=== PATIENT | male | born 1950 | race African-American/Black ===

== ENCOUNTER 2017-03-21 11:28 | Emergency (ER) | payer MEDICARE, MEDICAID ==
[~2017-03-21] VITALS: Ht 188 cm; Wt 105.6 kg
[~2017-03-21 11:28] MED LIST: ALBU8.5H8 IH; FLUT16SP26 BOTHNARES; IBUP-1984 PO; INSU100V36 SQ; LANTUS SQ; NORCO10T PO
[2017-03-21] MEDS ORDERED: normal saline 1000ML IV soln IVB ONE ×2 (12:05→13:35)
[2017-03-21 12:37] LABS: BASOPHILS % (AUTO) 0.5 % (0-1); EOSINOPHILS # (AUTO) 0.3 X10'3 (0-0.9); EOSINOPHILS % (AUTO) 5.1 % (0-6); HEMATOCRIT 44.1 % (42.0-52.0); HEMOGLOBIN 14.3 g/dl (14.0-17.9); LYMPHOCYTES # (AUTO) 1.1 X10'3 (1.1-4.8); LYMPHOCYTES % (AUTO) 22.9 % (21-51); MEAN CORPUSCULAR HEMOGLOBIN 27.7 PG (27.0-31.0); MEAN CORPUSCULAR HGB CONC 32.5 % (33.0-36.5); MEAN CORPUSCULAR VOLUME 85.3 FL (78-98); MEAN PLATELET VOLUME 9.5 FL (7.4-10.4); MONOCYTES # (AUTO) 0.4 X10'3 (0-0.9); MONOCYTES % (AUTO) 7.7 % (2-12); NEUTROPHILS # (AUTO) 3.2 X10'3 (1.8-7.7); NEUTROPHILS % (AUTO) 63.8 % (42-75); PLATELET COUNT 151 X10'3 (140-440); RED BLOOD COUNT 5.17 X10'6 (4.70-6.10); RED CELL DISTRIBUTION WIDTH 14.6 % (11.5-14.5)
[2017-03-21 12:45] LABS: PROTHROMBIN TIME 10.6 SECONDS (9.0-12.0)
[2017-03-21 12:53] LABS: ALANINE AMINOTRANSFERASE 32 U/L (12-78); ALBUMIN 3.5 G/DL (3.4-5.0); ALBUMIN/GLOBULIN RATIO 1.1 (1.1-1.5); ALKALINE PHOSPHATASE 69 IU/L (46-116); ANION GAP 12 (8-16); ASPARTATE AMINO TRANSFERASE 7 U/L (10-37); BILIRUBIN,TOTAL 0.6 MG/DL (0.1-1.0); BLOOD UREA NITROGEN 11 MG/DL (7-18); BUN/CREATININE RATIO 12.2 (5.4-32.0); CHLORIDE 103 MMOL/L (99-107); GLUCOSE 354 MG/DL (70-104); POTASSIUM 4.1 MMOL/L (3.5-5.1); SODIUM 139 MMOL/L (135-145); TOTAL CARBON DIOXIDE 24.5 MMOL/L (24-32); TOTAL PROTEIN 6.8 G/DL (6.4-8.2); eGFR > 90 ML/MIN
[2017-03-21] MEDS ORDERED: METF1000 PO (14:55)
[2017-03-21 14:57] VITALS: BP 112/45
== END 2017-03-21 14:59 | disposition home or self-care (01) ==
LOC: ER 11:29
DX: R42 Dizziness and giddiness (principal); E11.65 Type 2 diabetes mellitus with hyperglycemia; I10 Essential (primary) hypertension; M19.90 Unspecified osteoarthritis, unspecified site; F17.200 Nicotine dependence, unspecified, uncomplicated; F12.10 Cannabis abuse, uncomplicated; Z79.899 Other long term (current) drug therapy; Z79.4 Long term (current) use of insulin
CPT/HCPCS: 36415; 71045; 80053; 82948; 85025; 85610; 93005; 96360; 96361; 99285; J7030

== ENCOUNTER 2017-12-03 09:18 | Emergency (ER) | payer MEDICARE, MEDICAID ==
[~2017-12-03] VITALS: Ht 188 cm; Wt 80.0 kg
[2017-12-03 09:23] VITALS: BP 110/66
[2017-12-03] MEDS ORDERED: DIPH25CA83 PO (10:04)
[2017-12-03] MEDS ORDERED: CEPH-572 PO (10:04)
[2017-12-03] MEDS ORDERED: diphenhydrAMINE 25mg capsule PO ONE (10:05)
== END 2017-12-03 10:15 | disposition home or self-care (01) ==
LOC: ER 09:19
DX: L03.011 Cellulitis of right finger (principal); I10 Essential (primary) hypertension; E11.9 Type 2 diabetes mellitus without complications; M19.90 Unspecified osteoarthritis, unspecified site; F12.90 Cannabis use, unspecified, uncomplicated; Z79.82 Long term (current) use of aspirin
CPT/HCPCS: 99284; Q0163

== ENCOUNTER 2018-12-02 18:48 | Emergency (ER) | payer MEDICARE, MEDICAID ==
[~2018-12-02] VITALS: Ht 182.9 cm; Wt 90.0 kg
[~2018-12-02 18:48] MED LIST changes: +DIPH25CA83 PO
[2018-12-02 19:41] LABS: BASOPHILS # (AUTO) 0.1 X10'3 (0-0.2); BASOPHILS % (AUTO) 1.1 % (0-1); EOSINOPHILS # (AUTO) 0.2 X10'3 (0-0.9); HEMATOCRIT 42.6 % (42.0-52.0); HEMOGLOBIN 13.9 g/dl (14.0-17.9); LYMPHOCYTES # (AUTO) 1.4 X10'3 (1.1-4.8); LYMPHOCYTES % (AUTO) 27.5 % (21-51); MEAN CORPUSCULAR HEMOGLOBIN 27.7 PG (27.0-31.0); MEAN CORPUSCULAR HGB CONC 32.5 g/dL (33.0-36.5); MEAN CORPUSCULAR VOLUME 85.3 FL (78-98); MONOCYTES # (AUTO) 0.5 X10'3 (0-0.9); MONOCYTES % (AUTO) 8.9 % (2-12); NEUTROPHILS % (AUTO) 58.5 % (42-75); PLATELET COUNT 211 X10'3 (140-440); RED CELL DISTRIBUTION WIDTH 14.8 % (11.5-14.5); WHITE BLOOD COUNT 5.1 X10'3 (4.5-11.0)
[2018-12-02 19:48] LABS: ALANINE AMINOTRANSFERASE 25 U/L (12-78); ALBUMIN 3.8 G/DL (3.4-5.0); ALKALINE PHOSPHATASE 73 IU/L (46-116); ANION GAP 9 (8-16); ASPARTATE AMINO TRANSFERASE 16 U/L (10-37); BILIRUBIN,TOTAL 0.7 MG/DL (0.1-1.0); BLOOD UREA NITROGEN 16 MG/DL (7-18); BUN/CREATININE RATIO 16.7 (5.4-32.0); CALCIUM 9.1 MG/DL (8.5-10.1); CHLORIDE 108 MMOL/L (99-107); CREATININE 0.96 MG/DL (0.60-1.10); GLUCOSE 190 MG/DL (70-104); POTASSIUM 4.3 MMOL/L (3.5-5.1); SODIUM 143 MMOL/L (135-145); TOTAL CARBON DIOXIDE 25.7 MMOL/L (24-32); TOTAL PROTEIN 7.5 G/DL (6.4-8.2); eGFR > 90 ML/MIN
[2018-12-02 20:01] LABS: PARTIAL THROMBOPLASTIN TIME 27 SECONDS (22-32)
[2018-12-02 21:29] VITALS: BP 94/66
--- NOTE | 2018-12-02 21:34 | NUR ---
Orthostatic vitals completed with no complaints of dizziness or feeling lightheaded with each position change.
[2018-12-02] MEDS ORDERED: ketorolac tromethamine 15mg/ml inj. IV ONE (21:55)
[2018-12-02] MEDS ORDERED: normal saline 1000ML IV soln IVB ONE (21:55)
== END 2018-12-02 23:04 | disposition home or self-care (01) ==
LOC: ER 18:49
DX: R42 Dizziness and giddiness (principal); M79.89 Other specified soft tissue disorders; I10 Essential (primary) hypertension; E11.9 Type 2 diabetes mellitus without complications; M19.90 Unspecified osteoarthritis, unspecified site; F12.90 Cannabis use, unspecified, uncomplicated; Z79.4 Long term (current) use of insulin; Z79.899 Other long term (current) drug therapy
CPT/HCPCS: 36415; 71046; 80053; 82948; 84484; 85025; 85610; 85730; 93005; 96374; 99284; J1885; J7030

== ENCOUNTER 2018-12-05 17:53 | Emergency (ER) | payer MEDICARE, MEDICAID ==
[~2018-12-05] VITALS: Ht 188 cm; Wt 103.8 kg
[2018-12-05] MEDS ORDERED: ketorolac tromethamine 15mg/ml inj. IM ONE (19:05)
[2018-12-05 19:37] LABS: BASOPHILS % (AUTO) 0.8 % (0-1); EOSINOPHILS # (AUTO) 0.2 X10'3 (0-0.9); EOSINOPHILS % (AUTO) 3.5 % (0-6); HEMATOCRIT 42.4 % (42.0-52.0); LYMPHOCYTES # (AUTO) 1.3 X10'3 (1.1-4.8); LYMPHOCYTES % (AUTO) 20.7 % (21-51); MEAN PLATELET VOLUME 8.8 FL (7.4-10.4); MONOCYTES # (AUTO) 0.7 X10'3 (0-0.9); MONOCYTES % (AUTO) 10.7 % (2-12); NEUTROPHILS # (AUTO) 3.9 X10'3 (1.8-7.7); NEUTROPHILS % (AUTO) 64.3 % (42-75); PLATELET COUNT 198 X10'3 (140-440); RED BLOOD COUNT 4.99 X10'6 (4.70-6.10); RED CELL DISTRIBUTION WIDTH 14.7 % (11.5-14.5); WHITE BLOOD COUNT 6.1 X10'3 (4.5-11.0)
[2018-12-05 19:53] LABS: ALANINE AMINOTRANSFERASE 44 U/L (12-78); ALBUMIN 3.9 G/DL (3.4-5.0); ALKALINE PHOSPHATASE 83 IU/L (46-116); ANION GAP 9 (8-16); ASPARTATE AMINO TRANSFERASE 53 U/L (10-37); BILIRUBIN,TOTAL 0.6 MG/DL (0.1-1.0); BLOOD UREA NITROGEN 17 MG/DL (7-18); BUN/CREATININE RATIO 17.5 (5.4-32.0); CHLORIDE 105 MMOL/L (99-107); CREATININE 0.97 MG/DL (0.60-1.10); ETHANOL < 0.010 GM/DL (0.0-0.010); GLUCOSE 197 MG/DL (70-104); POTASSIUM 4.1 MMOL/L (3.5-5.1); SODIUM 141 MMOL/L (135-145); TOTAL CARBON DIOXIDE 27.4 MMOL/L (24-32); TOTAL PROTEIN 7.8 G/DL (6.4-8.2); eGFR > 90 ML/MIN
[2018-12-05 21:19] VITALS: BP 136/88
== END 2018-12-05 21:17 | disposition home or self-care (01) ==
LOC: ER 17:54
DX: S39.012A Strain of muscle, fascia and tendon of lower back, initial encounter (principal); H55.00 Unspecified nystagmus; R20.0 Anesthesia of skin; H53.8 Other visual disturbances; W18.39XA Other fall on same level, initial encounter; Y93.89 Activity, other specified; Y92.89 Other specified places as the place of occurrence of the external cause; Y99.8 Other external cause status
CPT/HCPCS: 36415; 70450; 72131; 80053; 80320; 85025; 96372; 99284; J1885

== ENCOUNTER 2019-03-12 14:29 | Inpatient (IN) | payer MEDICARE, MEDICAID ==
[~2019-03-12] VITALS: Ht 182.9 cm; Wt 101.5 kg
[2019-03-12] VITALS (9 sets, daily range): BP systolic 108–143; BP diastolic 45–76
--- NOTE | 2019-03-12 14:35 | NUR ---
1435 Dr Fay at bedside, STEMI alert called, pt is resting quietly on gurney, chest pain is 1/10, no SOB, +n/v prior to arrival in ER, Dr Fay gave verbal order 1liter NS bolus 1450 Dr Scott at bedside, 1455 Dr Scott gave verbal order for 2nd 1liter NS bolus, BP 81/26, 2nd EKG done, optometric technician stat 1505 2nd liter NS infusing w/o, [facility], Dr Scott at bedside to discuss plan of care, pt to be admitted to CCU, will not go to clinical laboratory medical director at this time,
[2019-03-12] MEDS ORDERED: heparin 10,000 units/1 ML INJ IV ONE ×2 (14:40→15:50)
[2019-03-12] MEDS ORDERED: aspirin 81mg tab.chew PO ONE (14:40)
[2019-03-12] MEDS ORDERED: heparin 10,000 units/1 ML INJ IV PRN ×2 (14:40→15:50)
[2019-03-12 14:49] LABS: BASOPHILS # (AUTO) 0.1 X10'3 (0-0.2); BASOPHILS % (AUTO) 0.7 % (0-1); EOSINOPHILS # (AUTO) 0.2 X10'3 (0-0.9); HEMATOCRIT 40.8 % (42.0-52.0); HEMOGLOBIN 13.5 g/dl (14.0-17.9); LYMPHOCYTES # (AUTO) 1.5 X10'3 (1.1-4.8); LYMPHOCYTES % (AUTO) 20.2 % (21-51); MEAN CORPUSCULAR HEMOGLOBIN 27.3 PG (27.0-31.0); MEAN CORPUSCULAR VOLUME 82.7 FL (78-98); MEAN PLATELET VOLUME 9.3 FL (7.4-10.4); MONOCYTES # (AUTO) 0.5 X10'3 (0-0.9); MONOCYTES % (AUTO) 6.3 % (2-12); NEUTROPHILS # (AUTO) 5.3 X10'3 (1.8-7.7); NEUTROPHILS % (AUTO) 69.8 % (42-75); PLATELET COUNT 176 X10'3 (140-440); RED BLOOD COUNT 4.94 X10'6 (4.70-6.10); RED CELL DISTRIBUTION WIDTH 14.8 % (11.5-14.5); WHITE BLOOD COUNT 7.6 X10'3 (4.5-11.0)
[2019-03-12] MEDS: heparin 25,000 UNIT/250ml bag 250 ML IV SCH (14:57)
[2019-03-12 15:00] LABS: PARTIAL THROMBOPLASTIN TIME 24 SECONDS (22-32)
[2019-03-12 15:03] LABS: ALANINE AMINOTRANSFERASE 18 U/L (12-78); ALBUMIN 3.4 G/DL (3.4-5.0); ALKALINE PHOSPHATASE 75 IU/L (46-116); ANION GAP 7 (8-16); ASPARTATE AMINO TRANSFERASE 12 U/L (10-37); BILIRUBIN,TOTAL 0.4 MG/DL (0.1-1.0); BLOOD UREA NITROGEN 13 MG/DL (7-18); BUN/CREATININE RATIO 12.9 (5.4-32.0); CALCIUM 8.7 MG/DL (8.5-10.1); CHLORIDE 107 MMOL/L (99-107); CREATININE 1.01 MG/DL (0.60-1.10); GLUCOSE 311 MG/DL (70-104); POTASSIUM 4.2 MMOL/L (3.5-5.1); SODIUM 144 MMOL/L (135-145); TOTAL CARBON DIOXIDE 30.4 MMOL/L (24-32); TOTAL PROTEIN 6.8 G/DL (6.4-8.2); eGFR 88 ML/MIN
[2019-03-12] MEDS ORDERED: insulin regular, human 10 units/0.1 ml syringe IV ONE (15:05)
[2019-03-12 15:10] LABS: MAGNESIUM 1.8 MG/DL (1.5-2.4)
--- NOTE | 2019-03-12 15:18 | NUR ---
valve technician at bedside
[2019-03-12] MEDS ORDERED: normal saline 1000ml 1,000 ML IV ONE ×2 (15:25→15:40)
[2019-03-12] MEDS ORDERED: heparin 25,000 UNIT/250ml bag 250 ML IV SCH (15:48)
[2019-03-12] MEDS ORDERED: morphine 2 MG/ML inj. syringe IV PRN (15:50)
[2019-03-12] MEDS ORDERED: acetaminophen 325mg tablet PO PRN ×2 (15:50)
[2019-03-12] MEDS ORDERED: ondansetron/PF 4mg/2ml inj IV PRN (15:50)
[2019-03-12] MEDS ORDERED: magnesium hydroxide 30ml (MOM) UD suspension PO PRN (15:50)
[2019-03-12] MEDS ORDERED: morphine 4 MG/ML inj SYRINge IV PRN (15:50)
[2019-03-12] MEDS ORDERED: potassium CL 10mEq/100ml bag 100 ML IV PRN ×2 (15:50)
[2019-03-12] MEDS ORDERED: potassium Cl 20 mEq SR tablet PO PRN ×2 (15:50)
[2019-03-12] MEDS ORDERED: HYDROcodone/acetaminophen 10/325mg tab PO PRN (15:50)
[2019-03-12] MEDS: tirofiban 5mg in NS 100mL 100 ML IV SCH ×3 (15:51→23:19)
[2019-03-12] MEDS ORDERED: NO HOME MEDS (16:14)
[2019-03-12] MEDS ORDERED: glucagon, human recombinant 1mg kit SUBCUT PRN (16:25)
[2019-03-12] MEDS ORDERED: MESSAGE TO PHARMACY PO ONE (16:25)
[2019-03-12] MEDS ORDERED: dextrose ORAL solution 15 GM/59 ML bottle PO PRN ×2 (16:25)
[2019-03-12] MEDS ORDERED: dextrose 50%-water 50ml dispensing syringe IV PRN ×2 (16:25)
--- NOTE | 2019-03-12 16:49 | NUR ---
report called to Yocasta MARRUFO
--- NOTE | 2019-03-12 17:15 | NUR ---
The patient, EDGARDO MARCUS, 69 y/o, M admitted by GENO POWERS MD, was given written information regarding hospital policies, unit procedures and contact persons. See Admission information.
--- NOTE | 2019-03-12 18:30 | NUR ---
Problems reprioritized. Patient report given, questions answered & plan of care reviewed with oncoming RN.
[2019-03-12 18:48] LABS: HEMOGLOBIN A1C 10.7 % (4.5-6.2)
[2019-03-12] MEDS: insulin Lispro (HumaLOG) vial - multi-dose SQ SCH (19:02)
--- NOTE | 2019-03-12 19:40 | NUR ---
TROPONIN CAME BACK 38.85. RIGO East NP WAS ON UNIT AT 1940 AND I LET HIM KNOW VERBALLY IN PERSON. NO CHANGES. PER REPORT - AGGRASTAT WAS TO CONTINUE AT SAME RATE IF THIS TROPONIN WAS ABNORMAL. AGGRASTAT CONTINUES TO INFUSE AT 0.15 UG/KG/MIN
[2019-03-12] MEDS: insulin glargine (Lantus) pen - multi-dose SQ SCH (21:46)
--- NOTE | 2019-03-12 22:00 | NUR ---
PTT RESULTED 42. PER PROTOCOL, INCREASED GTT FROM 12 UNIT/KG/HR (90 KG)TO 14 UNITS/KG/HR (90 KG), Addendum: 03/12/19 at 2242 by Trevin Duarte RN (ADDENDUM - [facility] UNEXPECTEDLY CLOSED) PATIENT WEIGHT BY BED 99.2 KG. TO BE CONSISTENT, I LEFT IV PUMP 90 KG IN THE PROGRAM BECAUSE THAT IS WHAT IT HAS BEEN RUNNING AT. I BOLUSED THE PATIENT PER PROTOCOL 4000 UNITS IV HEPARIN BASED ON 99.2 KG. (PER PROTOCOL 40 UNITS/KG BOLUS). THE CURRENT RATE OF THE IVAC = 12.6 ML/HR = 14 UNITS/KG/HR = 1260 UNITS/HOUR. PREVIOUS TO INCREASE, IVAC WAS RUNNING AT 10.8 ML/HR = 12 UNITS/KG/HR = 1080 UNIT/HR
--- NOTE | 2019-03-12 22:43 | NUR ---
PTT LAB DRAW WAS ENTERED FOR 0400 TOMORROW RATE CHANGE OCCURRED AT 2200 TONIGHT
[2019-03-13] VITALS (28 sets, daily range): BP systolic 104–158; BP diastolic 46–81
[2019-03-13 05:26] LABS: ALANINE AMINOTRANSFERASE 61 U/L (12-78); ALBUMIN/GLOBULIN RATIO 0.9 (1.1-1.5); ALKALINE PHOSPHATASE 70 IU/L (46-116); ANION GAP 8 (8-16); ASPARTATE AMINO TRANSFERASE 253 U/L (10-37); BILIRUBIN,TOTAL 0.5 MG/DL (0.1-1.0); BLOOD UREA NITROGEN 10 MG/DL (7-18); BUN/CREATININE RATIO 13.5 (5.4-32.0); CHLORIDE 109 MMOL/L (99-107); CREATININE 0.74 MG/DL (0.60-1.10); GLUCOSE 152 MG/DL (70-104); POTASSIUM 3.9 MMOL/L (3.5-5.1); SODIUM 143 MMOL/L (135-145); TOTAL CARBON DIOXIDE 26.2 MMOL/L (24-32); TOTAL PROTEIN 6.3 G/DL (6.4-8.2); eGFR > 90 ML/MIN
[2019-03-13 05:29] LABS: MAGNESIUM 1.7 MG/DL (1.5-2.4); PHOSPHORUS 3.2 MG/DL (2.3-4.5)
[2019-03-13] MEDS: tirofiban 5mg in NS 100mL 100 ML IV SCH ×3 (05:34→17:01)
[2019-03-13 06:05] LABS: BASOPHILS # (AUTO) 0.1 X10'3 (0-0.2); BASOPHILS % (AUTO) 0.8 % (0-1); EOSINOPHILS # (AUTO) 0.2 X10'3 (0-0.9); EOSINOPHILS % (AUTO) 3.2 % (0-6); HEMATOCRIT 39.2 % (42.0-52.0); LYMPHOCYTES # (AUTO) 1.4 X10'3 (1.1-4.8); MEAN CORPUSCULAR HEMOGLOBIN 27.5 PG (27.0-31.0); MEAN CORPUSCULAR HGB CONC 33.2 g/dL (33.0-36.5); MEAN CORPUSCULAR VOLUME 82.8 FL (78-98); MEAN PLATELET VOLUME 9.8 FL (7.4-10.4); MONOCYTES # (AUTO) 0.6 X10'3 (0-0.9); MONOCYTES % (AUTO) 7.4 % (2-12); NEUTROPHILS # (AUTO) 5.3 X10'3 (1.8-7.7); NEUTROPHILS % (AUTO) 70.6 % (42-75); PLATELET COUNT 157 X10'3 (140-440); RED BLOOD COUNT 4.73 X10'6 (4.70-6.10); RED CELL DISTRIBUTION WIDTH 14.8 % (11.5-14.5); WHITE BLOOD COUNT 7.6 X10'3 (4.5-11.0)
[2019-03-13] MEDS: insulin Lispro (HumaLOG) vial - multi-dose SQ SCH ×2 (08:40→20:54)
--- NOTE | 2019-03-13 09:21 | NUR ---
Called Dr. Scott to notify that the patient's troponin last night was 38.84 and this morning was 103.3. Dr. Scott stated okay. Will continue to monitor.
[2019-03-13] MEDS ORDERED: potassium Cl 20 mEq SR tablet PO ONE (10:40)
[2019-03-13] MEDS: heparin 25,000 UNIT/250ml bag 250 ML IV SCH (10:44)
[2019-03-13] MEDS ORDERED: diphenhydrAMINE 25mg capsule PO ONE (11:05)
[2019-03-13] MEDS ORDERED: iohexol 350 MG/ML 50ML vial IV ONE (11:57)
[2019-03-13] MEDS ORDERED: midazolam 2 mg/2 ml injection ONE (11:57)
[2019-03-13] MEDS ORDERED: fentaNYL/PF 50MCG/1 ML 2ML syringe ONE (11:57)
[2019-03-13] MEDS ORDERED: LIDOcaine 1% (10mg/ml)w/preservative injection 20ml MDV ONE (11:57)
[2019-03-13] MEDS ORDERED: iohexol 350MG/ML 100ml bottle IV ONE (11:57)
--- NOTE | 2019-03-13 12:10 | NUR ---
Patient going to laboratory animal facility supervisor at this time, consent in chart. Will assess upon return.
--- NOTE | 2019-03-13 13:00 | NUR ---
Received report from fence laborer RN, patient returned to room, right groin assessed without hematoma or redness, pulses palpable. Will continue to monitor.
--- NOTE | 2019-03-13 13:03 | NUR ---
DM Consult: A1C 10.7. Pt seen by RD for written/verbal DM ed w/ RD contact information provided. Pt very passive during ed; reports stopped DM meds years ago only using diet control w/ A1C 7.0 [address] educated pt on current A1C but pt declined verbal DM ed review. Pt has no DM MD; RD encouraged pt to establish w/ PCP or DM MD for improved coverage since pt does not check GLU at home as well. RD encouraged attending CDE course and RD contact information left at pt bedside. Addendum: 03/13/19 at [address] Amended: Links added.
[2019-03-13] MEDS ORDERED: ondansetron/PF 4mg/2ml inj IV PRN (13:15)
[2019-03-13] MEDS ORDERED: nitroGLYCERIN 0.4mg SUBLingual tab SL PRN (13:15)
[2019-03-13] MEDS ORDERED: normal saline 1000ml 1,000 ML IV SCH (13:15)
[2019-03-13] MEDS ORDERED: OXAZEpam 15mg capsule PO PRN (13:15)
[2019-03-13] MEDS ORDERED: HYDROcodone/acetaminophen 5mg/325mg tablet PO PRN (13:15)
[2019-03-13] MEDS ORDERED: HYDROcodone/acetaminophen 10/325mg tab PO PRN (13:15)
[2019-03-13] MEDS ORDERED: proCHLORperazine 10 MG/2 ml inj IV PRN (13:15)
[2019-03-13] MEDS ORDERED: insulin regular, human 100 UNIT in normal saline 100ml IV soln 100 ML IV SCH ×2 (15:13)
[2019-03-13] MEDS ORDERED: cefazolin/dext.iso 2gm/50ml 50 ML IV ONE (15:15)
[2019-03-13] MEDS ORDERED: gabapentin 400mg capsule PO ONE (15:15)
[2019-03-13] MEDS ORDERED: potassium Cl 20 mEq SR tablet PO PRN (15:15)
[2019-03-13] MEDS ORDERED: MESSAGE TO NURSING PO ONE ×4 (15:15)
[2019-03-13] MEDS ORDERED: VANCOMYCIN 1gm/H2O 200ml PB 200 ML IV ONE (15:15)
[2019-03-13] MEDS ORDERED: insulin glargine (Lantus) pen - multi-dose SQ PRN (15:15)
[2019-03-13] MEDS ORDERED: potassium Cl 20mEq/100mL bag 100 ML IV PRN (15:15)
[2019-03-13] MEDS ORDERED: dextrose 50%-water 50ml dispensing syringe IV PRN (15:15)
[2019-03-13] MEDS ORDERED: magnesium 2GM in 50ml NS 50 ML IV PRN (15:15)
[2019-03-13] MEDS ORDERED: MALTODEXTRIN/FRUCTOSE 0.68 KCAL/ML LIQUID 296ML BOTTLE PO ONE (15:15)
[2019-03-13] MEDS ORDERED: magnesium 4gm in 100ml NS 100 ML IV PRN (15:15)
--- NOTE | 2019-03-13 15:45 | NUR ---
Dr. Scott ordered discontinuation of heparin on his post catheterization paper orders. Sent to pharmacy and they discontinued heparin. Dr. Hale's pre-op orders state to discontinue heparin 4 hours prior to surgery. Called Dr. Hale to clarify when to stop heparin. Received order to stop heparin based on Dr. Scott's order post catheterization. Stopped heparin. Will continue to monitor.
[2019-03-13 16:56] LABS: ABG BASE EXCESS -2.1 mmol/L (-2.0-3.0); ABG HCO3 22.8 mmol/L (22.0-26.0); ABG OXYGEN SATURATION 94.6 % (95-98); ABG PCO2 (T) 39.8 mmHg (35.0-45.0); ABG PH (T) 7.376 (7.350-7.450); ABG PO2 (T) 72.6 mmHg (83-108); FCOHb 1.3 % (0.5-1.5); FMetHb 0.1 % (0.3-1.12); FO2Hb 93.3 % (94-100); RESPIRATORY RATE (OBSERVED) 17 b/min
[2019-03-13 17:15] LABS: HEMATOCRIT 37.3 % (42.0-52.0); HEMOGLOBIN 12.4 g/dl (14.0-17.9); MEAN CORPUSCULAR HEMOGLOBIN 27.6 PG (27.0-31.0); MEAN CORPUSCULAR HGB CONC 33.1 g/dL (33.0-36.5); MEAN CORPUSCULAR VOLUME 83.2 FL (78-98); MEAN PLATELET VOLUME 9.4 FL (7.4-10.4); PLATELET COUNT 163 X10'3 (140-440); RED BLOOD COUNT 4.49 X10'6 (4.70-6.10); RED CELL DISTRIBUTION WIDTH 14.8 % (11.5-14.5); WHITE BLOOD COUNT 6.5 X10'3 (4.5-11.0)
[2019-03-13] MEDS ORDERED: albuterol 2.5 MG/3 ML nebule NEB ONE (17:15)
[2019-03-13] MEDS ORDERED: albuterol 2.5 MG/3 ML nebule ONE (17:18)
[2019-03-13 17:24] LABS: PARTIAL THROMBOPLASTIN TIME 36 SECONDS (22-32)
[2019-03-13 17:28] LABS: ALANINE AMINOTRANSFERASE 54 U/L (12-78); ALKALINE PHOSPHATASE 69 IU/L (46-116); ANION GAP 6 (8-16); ASPARTATE AMINO TRANSFERASE 144 U/L (10-37); BILIRUBIN,TOTAL 0.5 MG/DL (0.1-1.0); BLOOD UREA NITROGEN 7 MG/DL (7-18); BUN/CREATININE RATIO 10.9 (5.4-32.0); CALCIUM 8.3 MG/DL (8.5-10.1); CHLORIDE 110 MMOL/L (99-107); CREATININE 0.64 MG/DL (0.60-1.10); GLUCOSE 126 MG/DL (70-104); POTASSIUM 4.1 MMOL/L (3.5-5.1); SODIUM 142 MMOL/L (135-145); TOTAL CARBON DIOXIDE 25.7 MMOL/L (24-32); TOTAL PROTEIN 6.1 G/DL (6.4-8.2); eGFR > 90 ML/MIN
[2019-03-13] MEDS: aspirin 81mg tablet.DR PO SCH (17:59)
[2019-03-13] MEDS ORDERED: mupirocin 2% ointment 22GM NS SCH (20:00)
[2019-03-13] MEDS ORDERED: metoprolol tartrate 25mg tablet PO SCH (20:00)
[2019-03-13] MEDS: metoprolol tartrate 12.5mg (1/2 tablet) PO SCH (20:36)
[2019-03-13] MEDS: insulin glargine (Lantus) pen - multi-dose SQ SCH (20:49)
[2019-03-13] MEDS ORDERED: atorvastatin 20mg tablet PO SCH (21:00)
[2019-03-14] VITALS (22 sets, daily range): BP systolic 105–155; BP diastolic 47–83
[2019-03-14 03:59] LABS: BASOPHILS # (AUTO) 0.1 X10'3 (0-0.2); BASOPHILS % (AUTO) 0.8 % (0-1); EOSINOPHILS # (AUTO) 0.2 X10'3 (0-0.9); EOSINOPHILS % (AUTO) 2.9 % (0-6); HEMATOCRIT 36.7 % (42.0-52.0); HEMOGLOBIN 12.2 g/dl (14.0-17.9); LYMPHOCYTES # (AUTO) 1.4 X10'3 (1.1-4.8); LYMPHOCYTES % (AUTO) 20.7 % (21-51); MEAN CORPUSCULAR HEMOGLOBIN 27.4 PG (27.0-31.0); MEAN CORPUSCULAR HGB CONC 33.2 g/dL (33.0-36.5); MEAN CORPUSCULAR VOLUME 82.5 FL (78-98); MEAN PLATELET VOLUME 9.5 FL (7.4-10.4); MONOCYTES # (AUTO) 0.5 X10'3 (0-0.9); MONOCYTES % (AUTO) 8.1 % (2-12); NEUTROPHILS # (AUTO) 4.6 X10'3 (1.8-7.7); NEUTROPHILS % (AUTO) 67.5 % (42-75); PLATELET COUNT 159 X10'3 (140-440); RED BLOOD COUNT 4.45 X10'6 (4.70-6.10); RED CELL DISTRIBUTION WIDTH 14.7 % (11.5-14.5); WHITE BLOOD COUNT 6.7 X10'3 (4.5-11.0)
[2019-03-14 04:17] LABS: ALANINE AMINOTRANSFERASE 44 U/L (12-78); ALBUMIN 2.8 G/DL (3.4-5.0); ALBUMIN/GLOBULIN RATIO 0.8 (1.1-1.5); ALKALINE PHOSPHATASE 69 IU/L (46-116); ANION GAP 9 (8-16); ASPARTATE AMINO TRANSFERASE 96 U/L (10-37); BILIRUBIN,TOTAL 0.5 MG/DL (0.1-1.0); BLOOD UREA NITROGEN 6 MG/DL (7-18); CHLORIDE 107 MMOL/L (99-107); CREATININE 0.67 MG/DL (0.60-1.10); GLUCOSE 115 MG/DL (70-104); MAGNESIUM 1.7 MG/DL (1.5-2.4); POTASSIUM 3.8 MMOL/L (3.5-5.1); SODIUM 140 MMOL/L (135-145); TOTAL CARBON DIOXIDE 23.9 MMOL/L (24-32); TOTAL PROTEIN 6.1 G/DL (6.4-8.2); eGFR > 90 ML/MIN
[2019-03-14] MEDS ORDERED: ringers solution, lacted 1,000 ML IV ONE ×2 (05:30→08:47)
[2019-03-14] MEDS ORDERED: cefazolin/dext.iso 2gm/100ml 100 ML IV ONE (05:30)
[2019-03-14] MEDS ORDERED: VANCOMYCIN 1gm/H2O 200ml PB 200 ML IV ONE (05:30)
[2019-03-14] MEDS ORDERED: gabapentin 400mg capsule PO ONE (05:30)
[2019-03-14] MEDS ORDERED: albuterol 2.5 MG/3 ML nebule NEB ONE (05:30)
[2019-03-14] MEDS ORDERED: LORazepam 2 mg/ml vial IV ONE (06:00)
[2019-03-14] MEDS ORDERED: famotidine 10mg tablet PO ONE (06:00)
[2019-03-14] MEDS ORDERED: mupirocin 2% nasal ointment 1gm UD NS SCH (07:55)
[2019-03-14] MEDS: aspirin 81mg tablet.DR PO SCH (07:55)
[2019-03-14] MEDS: metoprolol tartrate 12.5mg (1/2 tablet) PO SCH (07:56)
[2019-03-14] MEDS ORDERED: ROPIVAcaine 0.5% (5mg/ml) 30ml vial ONE (09:43)
[2019-03-14] MEDS ORDERED: MESSAGE TO NURSING PO ONE (10:00)
[2019-03-14 10:44] LABS: CLARITY,URINE CLEAR (Clear); COLOR,URINE STRAW (Yellow); GLUCOSE, URINE NEGATIVE (Neg); KETONES,URINE NEGATIVE (Neg); LEUKOCYTE ESTERASE ,URINE TRACE (Neg); NITRITES, URINE NEGATIVE (Neg); OCCULT BLOOD,URINE TRACE-INTACT (Neg); PROTEIN,URINE NEGATIVE (Neg); UROBILINOGEN,URINE 0.2 E.U/dL (0.2-1.0)
[2019-03-14 10:47] LABS: UA COLLECTION TYPE CLN CATCH MIDSTREAM
[2019-03-14 10:55] LABS: SQUAMOUS EPITHELIAL CELL,UR FEW /LPF (FEW)
[2019-03-14 10:56] LABS: BACTERIA,URINE 1+ /HPF (Neg); RBC,URINE 0-2 /HPF (0-2); WBC,URINE 0-4 /HPF (0-4)
[2019-03-14] MEDS ORDERED: MIDAZolam 5mg/5ml vial ONE (10:57)
[2019-03-14] MEDS ORDERED: SUFENTANIL CITRATE 50 MCG/ML 2ml ampule IV ONE (10:57)
[2019-03-14] MEDS ORDERED: LIDOcaine 2% (20mg/ml) 5ml vial ONE (10:59)
[2019-03-14] MEDS ORDERED: propofol inj 20 ML IV ONE (10:59)
--- NOTE | 2019-03-14 11:10 | NUR ---
Patient to CVOR with OR crew, transport vitals set up. Will assess upon return.
[2019-03-14] MEDS ORDERED: pancuronium br 1mg/ml inj IV ONE (11:15)
[2019-03-14] MEDS ORDERED: protamine sulf. 10mg/ml inj. IV ONE (11:20)
[2019-03-14] MEDS ORDERED: LABETALOL HCL 200mg/40ml (5 MG/ML) inj. IV ONE (11:20)
[2019-03-14] MEDS ORDERED: INSULIN R 100 UNIT in NS 100ML (1 UNIT/1 ML) BAG IV ONE (11:20)
[2019-03-14] MEDS ORDERED: aminocaproic acid 250 MG/1 ML inj. ONE ×2 (11:20→14:00)
[2019-03-14] MEDS ORDERED: sevoflurane 250ml liquid IH ONE (11:20)
[2019-03-14] MEDS ORDERED: nitroGLYCERIN in D5W 50mg/250ml (Tridil) infusion IV ONE (11:20)
[2019-03-14 12:15] LABS: ABG BASE EXCESS -4.7 mmol/L (-2.0-3.0); ABG HCO3 18.9 mmol/L (22.0-26.0); ABG OXYGEN SATURATION 99.8 % (95-98); ABG PCO2 30.3 mmHg (35.0-45.0); ABG PH 7.413 (7.350-7.450); ABG PO2 485.6 mmHg (60.0-100.0); CL (ABG) 107 mmol/L (99-107); FCOHb 1.2 % (0.5-1.5); FMetHb 0.2 % (0.3-1.12); FO2Hb 98.4 % (94-100); GLUCOSE (ABG) 143 mg/dl (70-104); IONIZED CA (ABG) 1.12 mmol/L (1.03-1.32); K (ABG) 3.5 mmol/L (3.3-5.1); NA (ABG) 135 mmol/L (135-145); TOTAL HEMOGLOBIN 11.8 G/dl (14.0-17.9)
[2019-03-14] MEDS ORDERED: phenylephrine 10mg/ml inj. ONE ×2 (12:25→14:00)
[2019-03-14] MEDS ORDERED: albumin (Human) 5% 250ml 250 ML IV ONE (12:34)
[2019-03-14] MEDS ORDERED: heparin 10,000 units/1 ML INJ IR ONE (12:52)
[2019-03-14 13:35] LABS: ABG BASE EXCESS -1.3 mmol/L (-2.0-3.0); ABG HCO3 23.2 mmol/L (22.0-26.0); ABG OXYGEN SATURATION 99.5 % (95-98); ABG PCO2 37.6 mmHg (35.0-45.0); ABG PH 7.408 (7.350-7.450); ABG PO2 276.4 mmHg (60.0-100.0); CL (ABG) 104 mmol/L (99-107); FCOHb 1.2 % (0.5-1.5); FMetHb 0.2 % (0.3-1.12); FO2Hb 98.1 % (94-100); GLUCOSE (ABG) 173 mg/dl (70-104); IONIZED CA (ABG) 1.03 mmol/L (1.03-1.32); K (ABG) 4.9 mmol/L (3.3-5.1); NA (ABG) 133 mmol/L (135-145); TOTAL HEMOGLOBIN 9.1 G/dl (14.0-17.9)
[2019-03-14 13:53] LABS: ACT @ 1.70 U 278 SEC (193-297); ACT @ 2.84 U 378 SEC (260-420); BASELINE ACT 144 SEC (101-148)
[2019-03-14] MEDS ORDERED: heparin 1,000 units/ml 10ml inj ONE (14:00)
[2019-03-14] MEDS ORDERED: potassium Cl 2 mEq/ml inj IV ONE (14:00)
[2019-03-14] MEDS ORDERED: papaverine 30 mg/ml 2ml inj. ONE (14:00)
[2019-03-14] MEDS ORDERED: methylPREDNISolone sod. succ. 500mg inj ONE (14:00)
[2019-03-14] MEDS ORDERED: albumin (human) 25% 100 ML IV solution IV ONE (14:00)
[2019-03-14] MEDS ORDERED: heparin 10,000 units/1 ML INJ ONE ×2 (14:00)
[2019-03-14] MEDS ORDERED: LIDOcaine 2% (20 mg/ml) 5ml cardiac syringe ONE (14:00)
[2019-03-14] MEDS ORDERED: calcium chloride 100 MG/1 ML inj IV ONE (14:00)
[2019-03-14] MEDS ORDERED: sodium bicarbonate (8.4%) 1 mEq/ml syringe ONE (14:00)
[2019-03-14] MEDS ORDERED: MAGNESIUM SULFATE 4 MEQ/ML (5gm/10ml) injection ONE (14:00)
[2019-03-14 14:11] LABS: ABG BASE EXCESS VENOUS -3.6 mmol/L; ABG HCO3 VENOUS 20.8 mmol/L; ABG PCO2 VENOUS 34.9 mmHg; ABG PO2 VENOUS 47.4 mmHg; CL (ABG) 102 mmol/L (99-107); FCOHb VENOUS 1.7 %; FHHb VENOUS 16.7 %; FMetHb VENOUS 0.5 %; FO2Hb VENOUS 81.1 %; GLUCOSE (ABG) 155 mg/dl (70-104); IONIZED CA (ABG) 1.26 mmol/L (1.03-1.32); K (ABG) 4.6 mmol/L (3.3-5.1); NA (ABG) 132 mmol/L (135-145); TOTAL HEMOGLOBIN 8.8 G/dl (14.0-17.9)
[2019-03-14] MEDS ORDERED: labetalol 20mg/4ml (5mg/ml) syringe IV ONE (14:18)
[2019-03-14] MEDS ORDERED: acetaminophen 1,000mg/100ml IV 100 ML IV ONE (14:32)
[2019-03-14 14:35] LABS: ABG BASE EXCESS VENOUS -0.1 mmol/L; ABG HCO3 VENOUS 25.2 mmol/L; ABG PCO2 VENOUS 44.2 mmHg; ABG PO2 VENOUS 57.5 mmHg; CL (ABG) 103 mmol/L (99-107); FHHb VENOUS 11.4 %; FMetHb VENOUS 0.4 %; FO2Hb VENOUS 87.2 %; GLUCOSE (ABG) 193 mg/dl (70-104); K (ABG) 4.5 mmol/L (3.3-5.1); NA (ABG) 136 mmol/L (135-145); TOTAL HEMOGLOBIN 9.5 G/dl (14.0-17.9)
--- NOTE | 2019-03-14 15:10 | NUR ---
Received to room 4024, accompanied by MDs and surgical crew. Placed on ventilator, to spot washer, arterial line and PA line pressure monitored. Chest tubes to suction at 20 cm. Lora cath to gravity drainage. Dressings are dry and intact. See assessment record. All vasoactive drugs are infusing via central line.
[2019-03-14] MEDS ORDERED: insulin regular, human 100 UNIT in normal saline 100ml IV soln 100 ML IV SCH ×2 (15:13)
[2019-03-14] MEDS ORDERED: sodium chloride 0.45% 1,000 ML IV SCH (15:13)
[2019-03-14] MEDS ORDERED: DOPamine 400mg/D5W 250ml 250 ML IV PRN (15:13)
[2019-03-14] MEDS ORDERED: nitroGLYCERIN-Tridil 50MG/D5W 250 ML IV PRN (15:13)
[2019-03-14] MEDS ORDERED: niCARDipine-NS 40mg/200ml IVPB 200 ML IV PRN (15:13)
[2019-03-14] MEDS ORDERED: normal saline 250ml IV soln 250 ML IV PRN (15:15)
[2019-03-14] MEDS ORDERED: morphine 4 MG/ML inj SYRINge IV PRN (15:15)
[2019-03-14] MEDS ORDERED: sodium phosphate inj. 15 MMOL in dextrose 5%-water 150 ML IV PRN (15:15)
[2019-03-14] MEDS ORDERED: pantoprazole 40 MG vial IV ONE (15:15)
[2019-03-14] MEDS ORDERED: magnesium 2GM in 50ml NS 50 ML IV PRN (15:15)
[2019-03-14] MEDS ORDERED: magnesium hydroxide 30ml (MOM) UD suspension PO PRN (15:15)
[2019-03-14] MEDS ORDERED: magnesium 4gm in 100ml NS 100 ML IV PRN (15:15)
[2019-03-14] MEDS ORDERED: ondansetron/PF 4mg/2ml inj IV PRN (15:15)
[2019-03-14] MEDS ORDERED: Neutra Phos packet PO PRN (15:15)
[2019-03-14] MEDS ORDERED: insulin glargine (Lantus) pen - multi-dose SQ PRN (15:15)
[2019-03-14] MEDS ORDERED: dextrose 50%-water 50ml dispensing syringe IV PRN (15:15)
[2019-03-14] MEDS ORDERED: potassium Cl 20 mEq SR tablet PO PRN (15:15)
[2019-03-14] MEDS ORDERED: sodium phosphate inj. 30 MMOL in dextrose 5%-water 250 ML IV PRN (15:15)
[2019-03-14] MEDS ORDERED: HYDROcodone/acetaminophen 10/325mg tab PO PRN (15:15)
[2019-03-14] MEDS ORDERED: acetaminophen 325mg tablet PO PRN ×2 (15:15)
[2019-03-14] MEDS ORDERED: metoclopramide 5 mg/ml inj IV PRN (15:15)
--- NOTE | 2019-03-14 15:15 | NUR ---
Patient returned from CVOR, Dr. Hale aware of air leak to Chest tube 1, no new orders received, will continue to monitor.
[2019-03-14 15:46] LABS: BASOPHILS # (AUTO) 0.1 X10'3 (0-0.2); BASOPHILS % (AUTO) 0.7 % (0-1); EOSINOPHILS # (AUTO) 0.1 X10'3 (0-0.9); EOSINOPHILS % (AUTO) 1.3 % (0-6); HEMATOCRIT 36.1 % (42.0-52.0); LYMPHOCYTES # (AUTO) 0.7 X10'3 (1.1-4.8); MEAN CORPUSCULAR HEMOGLOBIN 27.5 PG (27.0-31.0); MEAN CORPUSCULAR HGB CONC 33.3 g/dL (33.0-36.5); MEAN CORPUSCULAR VOLUME 82.4 FL (78-98); MEAN PLATELET VOLUME 9.2 FL (7.4-10.4); MONOCYTES # (AUTO) 0.2 X10'3 (0-0.9); MONOCYTES % (AUTO) 1.8 % (2-12); NEUTROPHILS # (AUTO) 7.2 X10'3 (1.8-7.7); NEUTROPHILS % (AUTO) 87.2 % (42-75); PLATELET COUNT 106 X10'3 (140-440); RED BLOOD COUNT 4.38 X10'6 (4.70-6.10); RED CELL DISTRIBUTION WIDTH 14.4 % (11.5-14.5); WHITE BLOOD COUNT 8.3 X10'3 (4.5-11.0)
[2019-03-14 15:46] LABS: ABG BASE EXCESS -1.6 mmol/L (-2.0-3.0); ABG HCO3 23.9 mmol/L (22.0-26.0); ABG OXYGEN SATURATION 99.3 % (95-98); ABG PCO2 (T) 42.2 mmHg (35.0-45.0); ABG PH (T) 7.368 (7.350-7.450); ABG PO2 (T) 262.2 mmHg (83-108); FCOHb 0.4 % (0.5-1.5); FMetHb 0.3 % (0.3-1.12); FO2Hb 98.6 % (94-100); MINUTE VOLUME 9 L/min; PATIENT TEMPERATURE 36.5; PEEP 5 cm H2O; RESPIRATORY RATE 12 b/min; RESPIRATORY RATE (OBSERVED) 12 b/min; TIDAL VOLUME 700 mL; TOTAL HEMOGLOBIN 12.6 G/dl (14.0-17.9)
[2019-03-14] MEDS: albumin (Human) 5% 250ml 250 ML IV PRN ×3 (15:50→22:41)
[2019-03-14] MEDS: insulin regular, human 100 UNIT in normal saline 100ml IV soln 100 ML IV SCH ×2 (15:51)
[2019-03-14 16:01] LABS: PARTIAL THROMBOPLASTIN TIME 32 SECONDS (22-32)
[2019-03-14 16:03] LABS: ALANINE AMINOTRANSFERASE 34 U/L (12-78); ALBUMIN/GLOBULIN RATIO 1.2 (1.1-1.5); ALKALINE PHOSPHATASE 56 IU/L (46-116); ANION GAP 8 (8-16); ASPARTATE AMINO TRANSFERASE 76 U/L (10-37); BILIRUBIN,TOTAL 0.8 MG/DL (0.1-1.0); BLOOD UREA NITROGEN 6 MG/DL (7-18); BUN/CREATININE RATIO 7.7 (5.4-32.0); CALCIUM 8.4 MG/DL (8.5-10.1); CHLORIDE 109 MMOL/L (99-107); CREATININE 0.78 MG/DL (0.60-1.10); GLUCOSE 197 MG/DL (70-104); MAGNESIUM 2.7 MG/DL (1.5-2.4); PHOSPHORUS 2.9 MG/DL (2.3-4.5); POTASSIUM 4.2 MMOL/L (3.5-5.1); SODIUM 143 MMOL/L (135-145); TOTAL CARBON DIOXIDE 26.4 MMOL/L (24-32); TOTAL PROTEIN 5.5 G/DL (6.4-8.2); eGFR > 90 ML/MIN
--- NOTE | 2019-03-14 16:15 | NUR ---
Received order to remove sheath from Dr. Scott. Place fem stop after manual pressure for 6 hours.
[2019-03-14] MEDS: ceFAZolin/D5W- 1GM premix 50 ML IV SCH (17:26)
--- NOTE | 2019-03-14 17:40 | NUR ---
Sheath removed per order, cannula intact, manual pressure held for 15 minutes, gauze and tegaderm dressing applied to site, femstop applied, distal pulses Dopplered. Will continue to monitor.
[2019-03-14] MEDS: morphine 4 MG/ML inj SYRINge IV PRN ×3 (18:03→23:46)
[2019-03-14] MEDS: potassium Cl 20mEq/100mL bag 100 ML IV PRN ×4 (18:09→23:31)
--- NOTE | 2019-03-14 18:25 | NUR ---
Problems reprioritized. Patient report given, questions answered & plan of care reviewed with Rob MARRUFO.
--- NOTE | 2019-03-14 18:30 | NUR ---
Patient in room ICU 2041. I have received report from Mikael MARRUFO and had the opportunity to ask questions and assume patient care.
[2019-03-14] MEDS: docusate sod 100mg capsule PO SCH (19:40)
[2019-03-14] MEDS: mupirocin 2% nasal ointment 1gm UD NS SCH (20:20)
[2019-03-14] MEDS: gabapentin 300mg capsule PO SCH (20:20)
[2019-03-14] MEDS: VANCOMYCIN 1gm/H2O 200ml PB 200 ML IV SCH (20:21)
[2019-03-14 21:49] LABS: BASOPHILS % (AUTO) 0.1 % (0-1); EOSINOPHILS % (AUTO) 0 % (0-6); HEMATOCRIT 34.4 % (42.0-52.0); HEMOGLOBIN 11.4 g/dl (14.0-17.9); LYMPHOCYTES # (AUTO) 0.4 X10'3 (1.1-4.8); LYMPHOCYTES % (AUTO) 3.5 % (21-51); MEAN CORPUSCULAR HEMOGLOBIN 27.6 PG (27.0-31.0); MEAN CORPUSCULAR HGB CONC 33.2 g/dL (33.0-36.5); MEAN PLATELET VOLUME 9.5 FL (7.4-10.4); MONOCYTES # (AUTO) 0.2 X10'3 (0-0.9); MONOCYTES % (AUTO) 2.3 % (2-12); NEUTROPHILS # (AUTO) 9.6 X10'3 (1.8-7.7); NEUTROPHILS % (AUTO) 94.1 % (42-75); PLATELET COUNT 111 X10'3 (140-440); RED BLOOD COUNT 4.15 X10'6 (4.70-6.10); RED CELL DISTRIBUTION WIDTH 14.6 % (11.5-14.5); WHITE BLOOD COUNT 10.2 X10'3 (4.5-11.0)
[2019-03-14 21:54] LABS: ALBUMIN 3.2 G/DL (3.4-5.0); ANION GAP 6 (8-16); BLOOD UREA NITROGEN 9 MG/DL (7-18); BUN/CREATININE RATIO 10.7 (5.4-32.0); CALCIUM 8.2 MG/DL (8.5-10.1); CHLORIDE 111 MMOL/L (99-107); CREATININE 0.84 MG/DL (0.60-1.10); GLUCOSE 169 MG/DL (70-104); MAGNESIUM 2.2 MG/DL (1.5-2.4); POTASSIUM 4.3 MMOL/L (3.5-5.1); SODIUM 143 MMOL/L (135-145); TOTAL CARBON DIOXIDE 25.8 MMOL/L (24-32); eGFR > 90 ML/MIN
[2019-03-15] VITALS (24 sets, daily range): BP systolic 110–153; BP diastolic 47–85
[2019-03-15] MEDS: ceFAZolin/D5W- 1GM premix 50 ML IV SCH ×3 (00:43→17:01)
--- NOTE | 2019-03-15 00:56 | NUR ---
Femstop taken off at 0015. tolerating well. no signs of bleeding or hematoma.
[2019-03-15] MEDS: morphine 4 MG/ML inj SYRINge IV PRN ×2 (02:40→13:29)
--- NOTE | 2019-03-15 02:45 | NUR ---
pt was extubated to 2L NC at 0235. tolerated well, no complications. saturations 96% on 2L at this time.
[2019-03-15 04:35] LABS: BASOPHILS % (AUTO) 0.1 % (0-1); EOSINOPHILS % (AUTO) 0 % (0-6); HEMOGLOBIN 11.2 g/dl (14.0-17.9); LYMPHOCYTES # (AUTO) 0.6 X10'3 (1.1-4.8); LYMPHOCYTES % (AUTO) 5.5 % (21-51); MEAN CORPUSCULAR HEMOGLOBIN 27.5 PG (27.0-31.0); MEAN CORPUSCULAR HGB CONC 33.1 g/dL (33.0-36.5); MEAN CORPUSCULAR VOLUME 83.3 FL (78-98); MEAN PLATELET VOLUME 9.7 FL (7.4-10.4); MONOCYTES # (AUTO) 0.6 X10'3 (0-0.9); NEUTROPHILS # (AUTO) 10.1 X10'3 (1.8-7.7); NEUTROPHILS % (AUTO) 89.4 % (42-75); PLATELET COUNT 113 X10'3 (140-440); RED BLOOD COUNT 4.08 X10'6 (4.70-6.10); RED CELL DISTRIBUTION WIDTH 14.8 % (11.5-14.5); WHITE BLOOD COUNT 11.3 X10'3 (4.5-11.0)
[2019-03-15 04:44] LABS: PARTIAL THROMBOPLASTIN TIME 30 SECONDS (22-32)
[2019-03-15 04:48] LABS: ALANINE AMINOTRANSFERASE 29 U/L (12-78); ALBUMIN 3.3 G/DL (3.4-5.0); ALBUMIN/GLOBULIN RATIO 1.2 (1.1-1.5); ALKALINE PHOSPHATASE 52 IU/L (46-116); ANION GAP 6 (8-16); ASPARTATE AMINO TRANSFERASE 60 U/L (10-37); BILIRUBIN,TOTAL 0.4 MG/DL (0.1-1.0); BLOOD UREA NITROGEN 11 MG/DL (7-18); BUN/CREATININE RATIO 14.1 (5.4-32.0); CALCIUM 8.3 MG/DL (8.5-10.1); CHLORIDE 112 MMOL/L (99-107); CREATININE 0.78 MG/DL (0.60-1.10); GLUCOSE 106 MG/DL (70-104); MAGNESIUM 2.9 MG/DL (1.5-2.4); PHOSPHORUS 3.1 MG/DL (2.3-4.5); POTASSIUM 4.8 MMOL/L (3.5-5.1); SODIUM 144 MMOL/L (135-145); TOTAL CARBON DIOXIDE 25.7 MMOL/L (24-32); eGFR > 90 ML/MIN
[2019-03-15] MEDS ORDERED: famotidine 10mg tablet PO ONE (06:00)
[2019-03-15] MEDS ORDERED: LORazepam 2 mg/ml vial IV ONE (06:00)
--- NOTE | 2019-03-15 06:17 | NUR ---
Problems reprioritized. Patient report given, questions answered & plan of care reviewed with Rebeca MARRUFO.
--- NOTE | 2019-03-15 06:23 | NUR ---
Report received from YARON Rivas.
[2019-03-15] MEDS: gabapentin 300mg capsule PO SCH ×3 (07:31→21:16)
[2019-03-15] MEDS: VANCOMYCIN 1gm/H2O 200ml PB 200 ML IV SCH ×2 (07:31→19:21)
[2019-03-15] MEDS: docusate sod 100mg capsule PO SCH ×2 (07:32→19:19)
[2019-03-15] MEDS: aspirin 325mg tablet, delayed-release (Ecotrin) PO SCH (07:32)
[2019-03-15] MEDS: atorvastatin 10mg tablet PO SCH (07:32)
[2019-03-15] MEDS: mupirocin 2% nasal ointment 1gm UD NS SCH ×2 (07:34→19:19)
[2019-03-15] MEDS ORDERED: metoprolol tartrate 12.5mg (1/2 tablet) PO SCH ×2 (08:00→20:00)
[2019-03-15] MEDS ORDERED: furosemide 40mg/4ml inj IV ONE (08:35)
[2019-03-15] MEDS ORDERED: metoprolol tartrate 12.5mg (1/2 tablet) PO ONE (08:35)
[2019-03-15] MEDS: insulin Lispro (HumaLOG) vial - multi-dose SQ SCH ×4 (08:56→21:21)
[2019-03-15] MEDS ORDERED: niCARDipine-NS 40mg/200ml IVPB 200 ML IV PRN (09:42)
--- NOTE | 2019-03-15 12:17 | NUR ---
CABG consult, patient is s/p CABG x3 on 03/14; Patient needs written post cardiac surgery diet education handout with emphasis on increased protein needs r/t wound heal and written heart healthy education handout with verbal review prior to discharge. Addendum: 03/15/19 at [address] Amended: Links added.
[2019-03-15 13:45] LABS: ACTIVATED CLOTTING TIME 140 SEC (101-148)
[2019-03-15] MEDS: insulin regular, human 100 UNIT in normal saline 100ml IV soln 100 ML IV SCH ×2 (14:50)
--- NOTE | 2019-03-15 18:32 | NUR ---
Report given to YARON Rivas
--- NOTE | 2019-03-15 18:33 | NUR ---
Patient in room ICU 2041. I have received report from Rebeca MARRUFO and had the opportunity to ask questions and assume patient care.
[2019-03-15] MEDS: HYDROcodone/acetaminophen 10/325mg tab PO PRN (19:19)
[2019-03-15] MEDS: lactobacillus rhamnosus 10,000 MMU CELLS/CAPSULE PO SCH (19:20)
[2019-03-15] MEDS ORDERED: metoprolol tartrate 25mg tablet PO ONE (20:45)
[2019-03-15] MEDS: insulin glargine (Lantus) pen - multi-dose SQ SCH (21:23)
[2019-03-15 21:41] LABS: POTASSIUM 4.9 MMOL/L (3.5-5.1)
[2019-03-16] VITALS (14 sets, daily range): BP systolic 92–130; BP diastolic 54–79
[2019-03-16] MEDS: ceFAZolin/D5W- 1GM premix 50 ML IV SCH (02:06)
[2019-03-16 02:40] LABS: BASOPHILS % (AUTO) 0.3 % (0-1); EOSINOPHILS % (AUTO) 0 % (0-6); HEMATOCRIT 35.4 % (42.0-52.0); HEMOGLOBIN 11.6 g/dl (14.0-17.9); LYMPHOCYTES # (AUTO) 0.9 X10'3 (1.1-4.8); LYMPHOCYTES % (AUTO) 6.3 % (21-51); MEAN CORPUSCULAR HEMOGLOBIN 27.3 PG (27.0-31.0); MEAN CORPUSCULAR HGB CONC 32.8 g/dL (33.0-36.5); MEAN CORPUSCULAR VOLUME 83.2 FL (78-98); MEAN PLATELET VOLUME 9.7 FL (7.4-10.4); MONOCYTES # (AUTO) 1.1 X10'3 (0-0.9); MONOCYTES % (AUTO) 7.8 % (2-12); NEUTROPHILS # (AUTO) 12.1 X10'3 (1.8-7.7); NEUTROPHILS % (AUTO) 85.6 % (42-75); PLATELET COUNT 120 X10'3 (140-440); RED BLOOD COUNT 4.25 X10'6 (4.70-6.10); RED CELL DISTRIBUTION WIDTH 14.6 % (11.5-14.5); WHITE BLOOD COUNT 14.1 X10'3 (4.5-11.0)
[2019-03-16 02:50] LABS: ALBUMIN 3.1 G/DL (3.4-5.0); ANION GAP 1 (8-16); BLOOD UREA NITROGEN 17 MG/DL (7-18); BUN/CREATININE RATIO 21.8 (5.4-32.0); CALCIUM 8.6 MG/DL (8.5-10.1); CHLORIDE 107 MMOL/L (99-107); CREATININE 0.78 MG/DL (0.60-1.10); GLUCOSE 121 MG/DL (70-104); PHOSPHORUS 3.3 MG/DL (2.3-4.5); POTASSIUM 4.7 MMOL/L (3.5-5.1); SODIUM 139 MMOL/L (135-145); TOTAL CARBON DIOXIDE 30.8 MMOL/L (24-32); eGFR > 90 ML/MIN
--- NOTE | 2019-03-16 06:36 | NUR ---
Problems reprioritized. Patient report given, questions answered & plan of care reviewed with Alex.
[2019-03-16] MEDS: pantoprazole 40mg Tablet.DR PO SCH (08:26)
[2019-03-16] MEDS: docusate sod 100mg capsule PO SCH ×2 (08:26→19:52)
[2019-03-16] MEDS: lactobacillus rhamnosus 10,000 MMU CELLS/CAPSULE PO SCH ×2 (08:27→19:53)
[2019-03-16] MEDS: atorvastatin 10mg tablet PO SCH (08:29)
[2019-03-16] MEDS: metoprolol tartrate 25mg tablet PO SCH ×2 (08:29→19:54)
[2019-03-16] MEDS: gabapentin 300mg capsule PO SCH ×2 (08:30→13:42)
[2019-03-16] MEDS: aspirin 325mg tablet, delayed-release (Ecotrin) PO SCH (08:30)
[2019-03-16] MEDS: mupirocin 2% nasal ointment 1gm UD NS SCH (08:30)
[2019-03-16] MEDS: insulin Lispro (HumaLOG) vial - multi-dose SQ SCH ×4 (08:42→21:27)
[2019-03-16] MEDS ORDERED: potassium Cl 20mEq/100mL bag 100 ML IV PRN (08:50)
[2019-03-16] MEDS ORDERED: magnesium 4gm in 100ml NS 100 ML IV PRN (08:50)
[2019-03-16] MEDS ORDERED: magnesium 2GM in 50ml NS 50 ML IV PRN (08:50)
[2019-03-16] MEDS ORDERED: potassium Cl 20 mEq SR tablet PO PRN (08:50)
[2019-03-16] MEDS: HYDROcodone/acetaminophen 10/325mg tab PO PRN (09:07)
--- NOTE | 2019-03-16 11:10 | NUR ---
Problems reprioritized. Patient report given, questions answered & plan of care reviewed with Andrea MARRUFO.
--- NOTE | 2019-03-16 12:00 | NUR ---
removed pt's CVL and held pressure according to protocol. D/c'd matt catheter; pt tolerated well. pt taken to rm 315 via wheel chair; VSS.
--- NOTE | 2019-03-16 18:00 | NUR ---
Patient in room MED 310. I have received report from Hugh and had the opportunity to ask questions and assume patient care.
--- NOTE | 2019-03-16 18:17 | NUR ---
Problems reprioritized. Patient report given, questions answered & plan of care reviewed with Monica MARRUFO.
[2019-03-16] MEDS: magnesium Cl slow-release 64mg tablet PO SCH (20:00)
[2019-03-16] MEDS: potassium Cl 20 mEq SR tablet PO SCH (20:00)
[2019-03-16] MEDS: insulin glargine (Lantus) pen - multi-dose SQ SCH (21:23)
[2019-03-17] VITALS (7 sets, daily range): BP systolic 94–116; BP diastolic 53–86
--- NOTE | 2019-03-17 00:56 | NUR ---
Called JUSTIN Madrid at [phone] and left a message regarding the patient having chest pain. Patient was complaining of chest pain, we did the 12 lead EKG which showing sinus tachy with pvc, incomplete right bundle branch block, ST elevation, consider early repolarization, pericarditis, or injury. Waiting for call back.
--- NOTE | 2019-03-17 01:02 | NUR ---
Patient denies any chest pain at this time, His vitals are BP of 116/62, HR 111, O2 Sat 98%, and respiratory rate of 16.
[2019-03-17 03:44] LABS: BASOPHILS % (AUTO) 0.3 % (0-1); EOSINOPHILS # (AUTO) 0.1 X10'3 (0-0.9); EOSINOPHILS % (AUTO) 0.7 % (0-6); HEMATOCRIT 36.3 % (42.0-52.0); LYMPHOCYTES # (AUTO) 1.4 X10'3 (1.1-4.8); LYMPHOCYTES % (AUTO) 13.4 % (21-51); MEAN CORPUSCULAR HEMOGLOBIN 27.3 PG (27.0-31.0); MEAN CORPUSCULAR HGB CONC 33.1 g/dL (33.0-36.5); MEAN CORPUSCULAR VOLUME 82.5 FL (78-98); MEAN PLATELET VOLUME 9.6 FL (7.4-10.4); MONOCYTES % (AUTO) 9.4 % (2-12); NEUTROPHILS # (AUTO) 8.1 X10'3 (1.8-7.7); NEUTROPHILS % (AUTO) 76.2 % (42-75); PLATELET COUNT 146 X10'3 (140-440); RED CELL DISTRIBUTION WIDTH 14.6 % (11.5-14.5); WHITE BLOOD COUNT 10.6 X10'3 (4.5-11.0)
[2019-03-17 03:46] LABS: ANION GAP 2 (8-16); BLOOD UREA NITROGEN 17 MG/DL (7-18); BUN/CREATININE RATIO 23.9 (5.4-32.0); CALCIUM 8.6 MG/DL (8.5-10.1); CHLORIDE 107 MMOL/L (99-107); CREATININE 0.71 MG/DL (0.60-1.10); GLUCOSE 64 MG/DL (70-104); POTASSIUM 4.4 MMOL/L (3.5-5.1); SODIUM 142 MMOL/L (135-145); TOTAL CARBON DIOXIDE 32.6 MMOL/L (24-32); eGFR > 90 ML/MIN
--- NOTE | 2019-03-17 06:21 | NUR ---
Patient in room MED 315. I have received report from Monica MARRUFO and had the opportunity to ask questions and assume patient care.
--- NOTE | 2019-03-17 06:38 | NUR ---
Problems reprioritized. Patient report given to Evan, questions answered & plan of care reviewed with.
[2019-03-17] MEDS: magnesium Cl slow-release 64mg tablet PO SCH ×2 (07:11→19:46)
[2019-03-17] MEDS: atorvastatin 10mg tablet PO SCH (08:06)
[2019-03-17] MEDS: docusate sod 100mg capsule PO SCH ×2 (08:06→20:42)
[2019-03-17] MEDS: lactobacillus rhamnosus 10,000 MMU CELLS/CAPSULE PO SCH ×2 (08:06→20:42)
[2019-03-17] MEDS: potassium Cl 20 mEq SR tablet PO SCH ×2 (08:06→20:42)
[2019-03-17] MEDS: pantoprazole 40mg Tablet.DR PO SCH (08:07)
[2019-03-17] MEDS: aspirin 325mg tablet, delayed-release (Ecotrin) PO SCH (08:07)
[2019-03-17] MEDS: metoprolol tartrate 25mg tablet PO SCH (08:07)
[2019-03-17] MEDS: insulin Lispro (HumaLOG) vial - multi-dose SQ SCH ×2 (09:21→13:21)
--- NOTE | 2019-03-17 12:00 | NUR ---
PATIENT CARDIAC RHYTHM IN/OUT SR/AFIB CONTROLLED RATE. JUSTIN MARTINEZ UPDATED: NEW ORDER RECEIVED - LOPRESSOR 25MG PO X1 DOSE NOW, STILL GIVE 50MG PO @ 1600 AND CONTINUE LOPRESSOR 50MG PO Q8H
[2019-03-17] MEDS ORDERED: metoprolol tartrate 25mg tablet PO ONE (12:05)
--- NOTE | 2019-03-17 14:00 | NUR ---
Received okay to give metoprolol with SBP 96-99 per Jeanmarie Clemens with HR going in/out A-fib.
--- NOTE | 2019-03-17 16:06 | NUR ---
Spoke to Jeanmarie ANDERSON regarding patient's awareness of abnormal CXR, states patient made aware of need to f/u re: positive path report of squamous cell carcinoma 7 cm nodule to lung. Will have him f/u after discharge.
--- NOTE | 2019-03-17 16:24 | NUR ---
Initial: Pt admitted with CAD s/p CABG x2. RD international sales manager visited pt at bedside and provided written CABG education and heart healthy education with verbal review and RD contact information. Pt reports a good appetite, PO intake 75% avg meals meeting nutrient needs. LBM 03/16. No nutrition intervention at this time. Recommendations: 1. continue no concentrated sweets diet 2. bowel care as needed 3. weight per rx Addendum: 03/17/19 at 1624 by Wing Bettina HALEY Amended: Links added.
[2019-03-17] MEDS: metoprolol tartrate 50mg tablet PO SCH (16:43)
--- NOTE | 2019-03-17 18:12 | NUR ---
Problems reprioritized. Patient report given, questions answered & plan of care reviewed with Monica MARRUFO.
--- NOTE | 2019-03-17 19:35 | NUR ---
patient refused insulin coverage for dinner. We will recheck his Blood Sugar at around 2100.
[2019-03-17] MEDS: insulin glargine (Lantus) pen - multi-dose SQ SCH (20:52)
[2019-03-18] MEDS: metoprolol tartrate 50mg tablet PO SCH ×2 (00:17→09:29)
[2019-03-18 02:00] VITALS: BP 117/76
--- NOTE | 2019-03-18 03:00 | NUR ---
Patient complaining of coughing and chest pain with 6 in intensity. 12 Lead EKG per protocol completed which showed normal sinus rhythm with PVCs. Patient state the pain decreased as he reposition himself. Charge Nurse-Cydney examined the 12 lead EKG.
[2019-03-18] MEDS: HYDROcodone/acetaminophen 10/325mg tab PO PRN (03:07)
--- NOTE | 2019-03-18 03:33 | NUR ---
Patient denies any pain at this moment, resting comfortably.
[2019-03-18 05:10] LABS: BASOPHILS % (AUTO) 0.4 % (0-1); EOSINOPHILS # (AUTO) 0.3 X10'3 (0-0.9); HEMATOCRIT 34.4 % (42.0-52.0); HEMOGLOBIN 11.4 g/dl (14.0-17.9); LYMPHOCYTES # (AUTO) 1.3 X10'3 (1.1-4.8); LYMPHOCYTES % (AUTO) 15.6 % (21-51); MEAN CORPUSCULAR HEMOGLOBIN 27.4 PG (27.0-31.0); MONOCYTES # (AUTO) 0.9 X10'3 (0-0.9); MONOCYTES % (AUTO) 10.6 % (2-12); NEUTROPHILS # (AUTO) 6.1 X10'3 (1.8-7.7); NEUTROPHILS % (AUTO) 70.4 % (42-75); PLATELET COUNT 158 X10'3 (140-440); RED BLOOD COUNT 4.14 X10'6 (4.70-6.10); RED CELL DISTRIBUTION WIDTH 14.6 % (11.5-14.5); WHITE BLOOD COUNT 8.6 X10'3 (4.5-11.0)
[2019-03-18 05:15] LABS: ALBUMIN 2.6 G/DL (3.4-5.0); ANION GAP 7 (8-16); BLOOD UREA NITROGEN 14 MG/DL (7-18); BUN/CREATININE RATIO 18.2 (5.4-32.0); CHLORIDE 106 MMOL/L (99-107); CREATININE 0.77 MG/DL (0.60-1.10); GLUCOSE 184 MG/DL (70-104); POTASSIUM 4.4 MMOL/L (3.5-5.1); SODIUM 141 MMOL/L (135-145); TOTAL CARBON DIOXIDE 28.1 MMOL/L (24-32); eGFR > 90 ML/MIN
[2019-03-18 06:00] VITALS: BP 95/50
--- NOTE | 2019-03-18 06:20 | NUR ---
Problems reprioritized. Patient report given to AltheaRN, questions answered & plan of care reviewed with .
--- NOTE | 2019-03-18 06:52 | NUR ---
Patient in room MED 315. I have received report from YARON Anderson and had the opportunity to ask questions and assume patient care.
[2019-03-18] MEDS: pantoprazole 40mg Tablet.DR PO SCH (07:30)
[2019-03-18] MEDS ORDERED: DOCU100C40 PO (09:15)
[2019-03-18] MEDS ORDERED: METO50TA16 PO (09:15)
[2019-03-18] MEDS ORDERED: ASPI-845 PO (09:15)
[2019-03-18] MEDS ORDERED: ATOR10TA PO (09:15)
[2019-03-18] MEDS ORDERED: HYDR-4353 PO (09:15)
[2019-03-18] MEDS ORDERED: METF500T PO (09:24)
[2019-03-18] MEDS: lactobacillus rhamnosus 10,000 MMU CELLS/CAPSULE PO SCH (09:28)
[2019-03-18] MEDS: atorvastatin 10mg tablet PO SCH (09:28)
[2019-03-18] MEDS: magnesium Cl slow-release 64mg tablet PO SCH (09:28)
[2019-03-18] MEDS: aspirin 325mg tablet, delayed-release (Ecotrin) PO SCH (09:28)
[2019-03-18] MEDS: potassium Cl 20 mEq SR tablet PO SCH (09:28)
[2019-03-18] MEDS: docusate sod 100mg capsule PO SCH (09:28)
[2019-03-18 09:29] VITALS: BP_SYST 121
[2019-03-18] MEDS: insulin Lispro (HumaLOG) vial - multi-dose SQ SCH (09:36)
--- NOTE | 2019-03-18 12:44 | NUR ---
pt. discharged from facility at 1208. pt. refused staff escort and walked down to private vehicle accompanied by his brother. pt. IV was d/c intact. pt. signed and understood all paperwork. [facility] meds were [facility], narcotic script sent home with pt. pt. left with all belongings.
--- NOTE | 2019-03-21 15:19 | NUR ---
Case Management DC follow up: LM/VM asking pt to rtn call if any questions/concerns or to let us know how he is doing/if all needs have been met
== END 2019-03-18 12:10 | disposition home health service (06) | DRG 233 ==
LOC: ER 14:29 → ED HOLD 15:48 → ICU 2S 17:11 → MED 3N 03-16 12:03
PROVIDERS: ADMIT Internal Medicine Critical Care Medicine; ATTEND Thoracic Surgery (Cardiothoracic Vascular Surgery)
PROC: 4A023N7 Measurement of Cardiac Sampling and Pressure, Left Heart, Percutaneous Approach (ICD-10-PCS; principal; 2019-03-13)
PROC: B2111ZZ Fluoroscopy of Multiple Coronary Arteries using Low Osmolar Contrast (ICD-10-PCS; 2019-03-13)
PROC: B2151ZZ Fluoroscopy of Left Heart using Low Osmolar Contrast (ICD-10-PCS; 2019-03-13)
PROC: B3111ZZ Fluoroscopy of Right Brachiocephalic-Subclavian Artery using Low Osmolar Contrast (ICD-10-PCS; 2019-03-13)
PROC: B3121ZZ Fluoroscopy of Left Subclavian Artery using Low Osmolar Contrast (ICD-10-PCS; 2019-03-13)
PROC: B41F1ZZ Fluoroscopy of Right Lower Extremity Arteries using Low Osmolar Contrast (ICD-10-PCS; 2019-03-13)
PROC: 021109W Bypass Coronary Artery, Two Arteries from Aorta with Autologous Venous Tissue, Open Approach (ICD-10-PCS; 2019-03-14)
PROC: 0BBG0ZZ Excision of Left Upper Lung Lobe, Open Approach (ICD-10-PCS; 2019-03-14)
PROC: 06BQ4ZZ Excision of Left Saphenous Vein, Percutaneous Endoscopic Approach (ICD-10-PCS; 2019-03-14)
PROC: 0BNJ0ZZ Release Left Lower Lung Lobe, Open Approach (ICD-10-PCS; 2019-03-14)
PROC: 0BNG0ZZ Release Left Upper Lung Lobe, Open Approach (ICD-10-PCS; 2019-03-14)
PROC: 5A1221Z Performance of Cardiac Output, Continuous (ICD-10-PCS; 2019-03-14)
PROC: B24BZZ4 Ultrasonography of Heart with Aorta, Transesophageal (ICD-10-PCS; 2019-03-14)
PROC: 02HV33Z Insertion of Infusion Device into Superior Vena Cava, Percutaneous Approach (ICD-10-PCS; 2019-03-14)
PROC: B548ZZA Ultrasonography of Superior Vena Cava, Guidance (ICD-10-PCS; 2019-03-14)
PROC: 03HY32Z Insertion of Monitoring Device into Upper Artery, Percutaneous Approach (ICD-10-PCS; 2019-03-14)
PROC: 4A133B1 Monitoring of Arterial Pressure, Peripheral, Percutaneous Approach (ICD-10-PCS; 2019-03-14)
PROC: 4A133J1 Monitoring of Arterial Pulse, Peripheral, Percutaneous Approach (ICD-10-PCS; 2019-03-14)
PROC: 0BJ08ZZ Inspection of Tracheobronchial Tree, Via Natural or Artificial Opening Endoscopic (ICD-10-PCS; 2019-03-14)
DX: I21.19 ST elevation (STEMI) myocardial infarction involving other coronary artery of inferior wall (principal); N17.0 Acute kidney failure with tubular necrosis; C34.12 Malignant neoplasm of upper lobe, left bronchus or lung; I25.110 Atherosclerotic heart disease of native coronary artery with unstable angina pectoris; E11.65 Type 2 diabetes mellitus with hyperglycemia; F12.90 Cannabis use, unspecified, uncomplicated; I95.9 Hypotension, unspecified; F17.210 Nicotine dependence, cigarettes, uncomplicated; Z60.2 Problems related to living alone; J98.4 Other disorders of lung; F41.9 Anxiety disorder, unspecified; R00.0 Tachycardia, unspecified; I10 Essential (primary) hypertension; J44.9 Chronic obstructive pulmonary disease, unspecified; M19.90 Unspecified osteoarthritis, unspecified site; Z91.19 Patient's noncompliance with other medical treatment and regimen; I25.2 Old myocardial infarction
CPT/HCPCS: 0232T; 93306; 93312; 93325; 93458; 96374; 96375; 99285; 36415; 36600; 71045; 71250; 80048; 80053; 81001; 82330; 82435; 82803; 82947; 82948; 83036; 83735; 83880; 84100; 84132; 84295; 84484; 85018; 85025; 85027; 85347; 85384; 85610; 85730; 86885; 86900; 86901; 86920; 87070; 87075; 87081; 87088; 87102; 87176; 88305; 88307; 88331; 93005; 93880; 93970; 94002; 94003; 94060; 94640; 94667; 94668; 94760; 97110; 97116; 97161; 97530; 99152; 99153; A4618; A4620; A6258; A6402; A6449; A7000; A7048; C1713; C1751; C1769; C9113; G0378; J0131; J0690; J1644; J1815; J1940; J2001; J2060; J2150; J2250; J2270; J2370; J2440; J2704; J2720; J2795; J2930; J3010; J3246; J3370; J3475; J3480; J3490; J7030; J7040; J7050; J7120; P9045; P9047; Q0163; Q9967

== ENCOUNTER 2019-09-02 06:13 | Day surgery (SDC) | payer MEDICARE, MEDICAID ==
--- NOTE | 2019-08-26 14:31 | NUR ---
PT STATED HE RAN OUT OF ALL HIS MEDS 2 MONTHS AGO (INCLUDING HIS METFORMIN AND METOPROLOL). CALL PLACED TO
[2019-08-26 14:49] LABS: BASOPHILS % (AUTO) 0.8 % (0-1); EOSINOPHILS # (AUTO) 0.2 X10'3 (0-0.9); EOSINOPHILS % (AUTO) 2.6 % (0-6); LYMPHOCYTES # (AUTO) 1.3 X10'3 (1.1-4.8); LYMPHOCYTES % (AUTO) 21.7 % (21-51); MEAN CORPUSCULAR HEMOGLOBIN 27.3 PG (27.0-31.0); MEAN CORPUSCULAR HGB CONC 32.2 g/dL (33.0-36.5); MEAN CORPUSCULAR VOLUME 84.8 FL (78-98); MEAN PLATELET VOLUME 9.6 FL (7.4-10.4); MONOCYTES # (AUTO) 0.5 X10'3 (0-0.9); MONOCYTES % (AUTO) 8.1 % (2-12); NEUTROPHILS # (AUTO) 3.9 X10'3 (1.8-7.7); NEUTROPHILS % (AUTO) 66.8 % (42-75); PRE OP HEMATOCRIT 50.1 % (42.0-52.0); PRE OP HEMOGLOBIN 16.1 g/dL (14.0-17.9); PRE OP PLATELET COUNT 209 X10'3 (140-440)
[2019-08-26 15:01] LABS: ALBUMIN 3.9 G/DL (3.4-5.0); ALKALINE PHOSPHATASE 95 IU/L (46-116); BLOOD UREA NITROGEN 24 MG/DL (7-18); BUN/CREATININE RATIO 15.5 (5.4-32.0); CALCIUM 9.7 MG/DL (8.5-10.1); CHLORIDE 104 MMOL/L (99-107); CREATININE 1.55 MG/DL (0.60-1.10); PRE OP ALT 19 U/L (30-65); PRE OP ANION GAP 8 (8-16); PRE OP AST 9 U/L (10-37); PRE OP BILIRUB, TOTAL 0.8 MG/DL (0.0-1.0); PRE OP POTASSIUM 4.7 MMOL/L (3.4-5.1); PRE OP SODIUM 139 MMOL/L (135-145); TOTAL CARBON DIOXIDE 26.6 MMOL/L (24-32); TOTAL PROTEIN 7.8 G/DL (6.4-8.2); eGFR 54 ML/MIN
[2019-08-26 15:02] LABS: HEMOGLOBIN A1C 10.5 % (4.5-6.2)
[2019-08-26 15:04] LABS: PRE OP GLUCOSE 414 MG/DL (70-104)
[2019-08-26 15:05] LABS: PRE OP PROTIME 10.3 SECONDS (9.0-12.0)
[~2019-09-02] VITALS: Ht 188 cm; Wt 97.7 kg
[2019-09-02] VITALS (10 sets, daily range): BP systolic 101–132; BP diastolic 58–68
[~2019-09-02 06:13] MED LIST changes: -ALBU8.5H8 IH; -DIPH25CA83 PO; -FLUT16SP26 BOTHNARES; -IBUP-1984 PO; -INSU100V36 SQ; -LANTUS SQ; +NO HOME MEDS; -NORCO10T PO; +albuterol 2.5 MG/3 ML nebule NEB ONE; +ceFAZolin 2gm in dextrose, iso 50 ML IV ONE; +famotidine 20mg tablet PO ONE; +ringers solution, lacted 1,000 ML IV SCH
[2019-09-02] MEDS ORDERED: insulin regular, human U-100 3ml vial - multi-dose IV ONE (08:45)
[2019-09-02] MEDS ORDERED: BUPIVAcaine/PF 2.5 mg/ml (0.25%) 30ml vial ONE (09:50)
[2019-09-02] MEDS ORDERED: fentaNYL/PF 50MCG/1 ML 2ML syringe ONE (10:56)
[2019-09-02] MEDS ORDERED: sevoflurane 250ml liquid IH ONE (11:04)
[2019-09-02] MEDS ORDERED: LIDOcaine 2% (20mg/ml) 5ml vial ONE (12:33)
[2019-09-02] MEDS ORDERED: phenylephrine 10mg/ml inj. ONE (12:33)
[2019-09-02] MEDS ORDERED: propofol inj 20 ML IV ONE (12:33)
[2019-09-02] MEDS ORDERED: ondansetron/PF 4mg/2ml inj ONE (12:33)
[2019-09-02] MEDS ORDERED: rocuronium 10mg/ml inj IV ONE (12:33)
[2019-09-02] MEDS ORDERED: sugammadex 200mg/2ml injection IV ONE (12:34)
--- NOTE | 2019-09-02 12:50 | NUR ---
Received from OR via BED, accompanied by Anesthesiologist DR URBINA-- and report given by Anesthesiolgist. PATIENT A&OX4, DENIES PAIN, V/S WNL, NEUROVASCULAR CHECKS INTACT, 20G PIV LUE, SCD ON, DERMABONDED ANTERIOR NECK SURGICAL SITE CLEAN AND DRY
[2019-09-02] MEDS ORDERED: ringers solution, lacted 1,000 ML IV SCH (12:53)
[2019-09-02] MEDS ORDERED: ondansetron/PF 4mg/2ml inj IV PRN (12:55)
[2019-09-02] MEDS ORDERED: morphine 2 MG/ML inj. syringe IV PRN (12:55)
--- NOTE | 2019-09-02 14:00 | NUR ---
PATIENT A&OX4, DENIES PAIN, V/S WNL, NEUROVASCULAR CHECKS INTACT, 20G PIV LUE D/C , SCD OFF, DERMABONDED ANTERIOR NECK SURGICAL SITE CLEAN AND DRY I HAVE REVIEWED D/C INSTRUCTIONS WITH PATIENT AND FAMILY AND THEY HAVE VERBALIZED UNDERSTANDING. PATIENT D/C HOME WITH ALL BELONGINGS AND FAMILY GAVE TRANSPORT HOME.
== END 2019-09-02 14:00 | disposition home or self-care (01) ==
LOC: PAS 06:13
PROVIDERS: ATTEND Thoracic Surgery (Cardiothoracic Vascular Surgery)
DX: R59.0 Localized enlarged lymph nodes (principal); C34.12 Malignant neoplasm of upper lobe, left bronchus or lung; I25.2 Old myocardial infarction; I25.10 Atherosclerotic heart disease of native coronary artery without angina pectoris; E11.9 Type 2 diabetes mellitus without complications; J44.9 Chronic obstructive pulmonary disease, unspecified; I10 Essential (primary) hypertension; Z98.890 Other specified postprocedural states; Z79.82 Long term (current) use of aspirin; Z79.84 Long term (current) use of oral hypoglycemic drugs; Z11.59 Encounter for screening for other viral diseases; Z95.1 Presence of aortocoronary bypass graft; F17.210 Nicotine dependence, cigarettes, uncomplicated; F12.90 Cannabis use, unspecified, uncomplicated; Z79.01 Long term (current) use of anticoagulants
CPT/HCPCS: 36415; 39402; 71045; 71046; 80053; 82948; 83036; 85025; 85610; 85730; 86885; 86900; 86901; 93005; 94640; 94760; C9399; J2001; J2270; J2370; J2405; J2704; J3010; J3490; J7120; U0003; A4215; A4618; A6258; A7000; J1815

== ENCOUNTER 2020-02-15 09:15 | Emergency (ER) | payer MEDICARE, MEDICAID ==
[~2020-02-15] VITALS: Ht 188 cm; Wt 100.0 kg
[~2020-02-15 09:15] MED LIST changes: -albuterol 2.5 MG/3 ML nebule NEB ONE; -ceFAZolin 2gm in dextrose, iso 50 ML IV ONE; -famotidine 20mg tablet PO ONE; -ringers solution, lacted 1,000 ML IV SCH
[2020-02-15 09:20] VITALS: BP 115/72
[2020-02-15] MEDS ORDERED: normal saline 1000ml 1,000 ML IV ONE (09:40)
--- NOTE | 2020-02-15 09:59 | NUR ---
Pt refuses to have labs drawn. Dr Cano notified and she went in to room to speak with patient. Pt continues to refuse treatment. told pt she would have his paperwork for him and he refused to wait, stating "I will just deal with it and if I , I ". Pt then walked out of the ED.
== END 2020-02-15 10:03 | disposition left against medical advice (07) ==
LOC: ER 09:16
DX: R07.0 Pain in throat (principal); R00.0 Tachycardia, unspecified; I25.10 Atherosclerotic heart disease of native coronary artery without angina pectoris; E11.9 Type 2 diabetes mellitus without complications; I10 Essential (primary) hypertension; F17.200 Nicotine dependence, unspecified, uncomplicated; M19.90 Unspecified osteoarthritis, unspecified site; F12.90 Cannabis use, unspecified, uncomplicated; Z95.1 Presence of aortocoronary bypass graft; Z85.118 Personal history of other malignant neoplasm of bronchus and lung
CPT/HCPCS: 99281

== ENCOUNTER 2020-03-25 14:14 | Emergency (ER) | payer BC, MEDICAID ==
[~2020-03-25] VITALS: Ht 188 cm; Wt 100.0 kg
[2020-03-25] MEDS ORDERED: normal saline 1000ML IV soln IV ONE (14:20)
[2020-03-25] MEDS ORDERED: aspirin 81mg tab.chew PO ONE (14:20)
[2020-03-25] MEDS ORDERED: insulin regular, human 10 units/0.1 ml syringe IV ONE (14:30)
[2020-03-25 14:41] LABS: BASOPHILS # (AUTO) 0.1 X10'3 (0-0.2); BASOPHILS % (AUTO) 1.2 % (0-1); EOSINOPHILS # (AUTO) 0.1 X10'3 (0-0.9); EOSINOPHILS % (AUTO) 2.4 % (0-6); HEMATOCRIT 44.5 % (42.0-52.0); HEMOGLOBIN 14.4 g/dl (14.0-17.9); LYMPHOCYTES # (AUTO) 0.8 X10'3 (1.1-4.8); LYMPHOCYTES % (AUTO) 14.9 % (21-51); MEAN CORPUSCULAR HEMOGLOBIN 27.4 PG (27.0-31.0); MEAN CORPUSCULAR HGB CONC 32.4 g/dL (33.0-36.5); MEAN CORPUSCULAR VOLUME 84.4 FL (78-98); MEAN PLATELET VOLUME 9.2 FL (7.4-10.4); MONOCYTES # (AUTO) 0.4 X10'3 (0-0.9); MONOCYTES % (AUTO) 8.5 % (2-12); NEUTROPHILS # (AUTO) 3.8 X10'3 (1.8-7.7); PLATELET COUNT 178 X10'3 (140-440); RED BLOOD COUNT 5.27 X10'6 (4.70-6.10); WHITE BLOOD COUNT 5.2 X10'3 (4.5-11.0)
[2020-03-25 14:47] LABS: ABG BASE EXCESS -4.1 mmol/L (-2.0-2.0); ABG HCO3 20.2 mmol/L (22.0-26.0); ABG OXYGEN SATURATION 95.7 % (94-97); ABG PCO2 (T) 34.7 mmHg (35.0-48.0); ABG PO2 (T) 78.3 mmHg (75.0-100.0); ALLEN'S TEST POSITIVE; FCOHb 3.3 % (0.0-3.9); FMetHb 0.3 % (0.0-1.5); FO2Hb 92.3 % (94-97); TOTAL HEMOGLOBIN 14.8 G/dl (14.0-18.0)
[2020-03-25 15:03] LABS: ALANINE AMINOTRANSFERASE 17 U/L (12-78); ALBUMIN 3.6 G/DL (3.4-5.0); ALBUMIN/GLOBULIN RATIO 0.9 (1.1-1.5); ALKALINE PHOSPHATASE 90 IU/L (46-116); ANION GAP 9 (8-16); ASPARTATE AMINO TRANSFERASE 13 U/L (10-37); BILIRUBIN,TOTAL 0.4 MG/DL (0.1-1.0); BLOOD UREA NITROGEN 21 MG/DL (7-18); BUN/CREATININE RATIO 15.8 (5.4-32.0); CALCIUM 9.3 MG/DL (8.5-10.1); CHLORIDE 101 MMOL/L (99-107); CREATININE 1.33 MG/DL (0.60-1.10); ETHANOL < 0.010 GM/DL (0.0-0.010); MAGNESIUM 1.9 MG/DL (1.5-2.4); SODIUM 134 MMOL/L (135-145); TOTAL CARBON DIOXIDE 23.7 MMOL/L (24-32); TOTAL PROTEIN 7.5 G/DL (6.4-8.2); eGFR 64 ML/MIN
[2020-03-25 15:05] LABS: GLUCOSE 552 MG/DL (70-104)
[2020-03-25 17:20] VITALS: BP 108/59
== END 2020-03-25 17:23 ==
LOC: ER 14:14
DX: E11.65 Type 2 diabetes mellitus with hyperglycemia (principal); Z02.89 Encounter for other administrative examinations; I10 Essential (primary) hypertension; R06.89 Other abnormalities of breathing; Z95.1 Presence of aortocoronary bypass graft; M19.90 Unspecified osteoarthritis, unspecified site; F12.90 Cannabis use, unspecified, uncomplicated; Z60.2 Problems related to living alone
CPT/HCPCS: 36415; 36600; 71045; 80053; 80320; 82803; 82948; 83735; 83880; 84443; 84484; 85018; 85025; 93005; 96361; 96374; 99285; J1815; J7030

== ENCOUNTER 2020-04-12 19:25 | Emergency (ER) | payer BC, MEDICAID ==
[~2020-04-12] VITALS: Ht 188 cm; Wt 100.9 kg
[2020-04-12 21:15] LABS: BASOPHILS # (AUTO) 0.1 X10'3 (0-0.2); BASOPHILS % (AUTO) 1.1 % (0-1); EOSINOPHILS # (AUTO) 0.2 X10'3 (0-0.9); EOSINOPHILS % (AUTO) 4.2 % (0-6); HEMATOCRIT 45.3 % (42.0-52.0); HEMOGLOBIN 14.5 g/dl (14.0-17.9); LYMPHOCYTES # (AUTO) 1.2 X10'3 (1.1-4.8); LYMPHOCYTES % (AUTO) 21.1 % (21-51); MEAN CORPUSCULAR HEMOGLOBIN 26.9 PG (27.0-31.0); MEAN CORPUSCULAR VOLUME 83.9 FL (78-98); MEAN PLATELET VOLUME 9.4 FL (7.4-10.4); MONOCYTES # (AUTO) 0.4 X10'3 (0-0.9); MONOCYTES % (AUTO) 7.1 % (2-12); NEUTROPHILS # (AUTO) 3.8 X10'3 (1.8-7.7); NEUTROPHILS % (AUTO) 66.5 % (42-75); PLATELET COUNT 171 X10'3 (140-440); RED CELL DISTRIBUTION WIDTH 14.1 % (11.5-14.5); WHITE BLOOD COUNT 5.7 X10'3 (4.5-11.0)
[2020-04-12 21:28] LABS: ALANINE AMINOTRANSFERASE 18 U/L (12-78); ALBUMIN 3.9 G/DL (3.4-5.0); ALKALINE PHOSPHATASE 75 IU/L (46-116); ANION GAP 7 (8-16); ASPARTATE AMINO TRANSFERASE 9 U/L (10-37); BILIRUBIN,TOTAL 0.6 MG/DL (0.1-1.0); BLOOD UREA NITROGEN 23 MG/DL (7-18); CHLORIDE 104 MMOL/L (99-107); CREATININE 0.96 MG/DL (0.60-1.10); GLUCOSE 201 MG/DL (70-104); POTASSIUM 5.1 MMOL/L (3.5-5.1); SODIUM 139 MMOL/L (135-145); TOTAL CARBON DIOXIDE 28.1 MMOL/L (24-32); TOTAL PROTEIN 7.9 G/DL (6.4-8.2); eGFR > 90 ML/MIN
[2020-04-12 21:33] LABS: LIPASE 99 U/L (73-393); MAGNESIUM 2.2 MG/DL (1.5-2.4); TROPONIN I < 0.04 NG/ML (0.0-0.05)
--- NOTE | 2020-04-12 21:42 | NUR ---
Pt sitting at edge of bed talking with CO officer. D/C ready.
[2020-04-12 21:43] LABS: CLARITY,URINE CLEAR (Clear); COLOR,URINE YELLOW (Yellow); GLUCOSE, URINE NEGATIVE (Neg); KETONES,URINE NEGATIVE (Neg); LEUKOCYTE ESTERASE ,URINE NEGATIVE (Neg); NITRITES, URINE NEGATIVE (Neg); OCCULT BLOOD,URINE NEGATIVE (Neg); PROTEIN,URINE NEGATIVE (Neg); UROBILINOGEN,URINE 0.2 E.U/dL (0.2-1.0)
[2020-04-12 21:54] LABS: UA COLLECTION TYPE CLN CATCH MIDSTREAM
[2020-04-12 22:10] VITALS: BP 168/119
== END 2020-04-12 22:11 | disposition home or self-care (01) ==
LOC: ER 19:25
DX: R53.1 Weakness (principal); G89.29 Other chronic pain; E78.00 Pure hypercholesterolemia, unspecified; I10 Essential (primary) hypertension; I25.2 Old myocardial infarction; E11.9 Type 2 diabetes mellitus without complications; M19.90 Unspecified osteoarthritis, unspecified site; F12.90 Cannabis use, unspecified, uncomplicated; Z95.1 Presence of aortocoronary bypass graft; Z60.2 Problems related to living alone
CPT/HCPCS: 36415; 80053; 81003; 83690; 83735; 84484; 85025; 93005; 99284

== ENCOUNTER 2020-08-30 09:16 | Emergency (ER) | payer BC, MEDICAID ==
[~2020-08-30] VITALS: Ht 188 cm; Wt 101.7 kg
[2020-08-30 10:17] LABS: BASOPHILS % (AUTO) 0.3 % (0-1); EOSINOPHILS # (AUTO) 0.1 X10'3 (0-0.9); EOSINOPHILS % (AUTO) 1.6 % (0-6); HEMOGLOBIN 13.9 g/dl (14.0-17.9); LYMPHOCYTES # (AUTO) 0.8 X10'3 (1.1-4.8); LYMPHOCYTES % (AUTO) 19.5 % (21-51); MEAN CORPUSCULAR HEMOGLOBIN 27.1 PG (27.0-31.0); MEAN CORPUSCULAR HGB CONC 33.2 g/dL (33.0-36.5); MEAN CORPUSCULAR VOLUME 81.7 FL (78-98); MEAN PLATELET VOLUME 8.8 FL (7.4-10.4); MONOCYTES # (AUTO) 0.4 X10'3 (0-0.9); MONOCYTES % (AUTO) 9.7 % (2-12); NEUTROPHILS # (AUTO) 2.9 X10'3 (1.8-7.7); NEUTROPHILS % (AUTO) 68.9 % (42-75); PLATELET COUNT 174 X10'3 (140-440); RED BLOOD COUNT 5.14 X10'6 (4.70-6.10); RED CELL DISTRIBUTION WIDTH 14.8 % (11.5-14.5); WHITE BLOOD COUNT 4.2 X10'3 (4.5-11.0)
[2020-08-30 10:33] LABS: ALANINE AMINOTRANSFERASE 30 U/L (12-78); ALBUMIN 3.6 G/DL (3.4-5.0); ALBUMIN/GLOBULIN RATIO 0.9 (1.1-1.5); ALKALINE PHOSPHATASE 67 IU/L (46-116); ANION GAP 8 (8-16); ASPARTATE AMINO TRANSFERASE 24 U/L (10-37); BILIRUBIN,TOTAL 0.5 MG/DL (0.1-1.0); BLOOD UREA NITROGEN 20 MG/DL (7-18); BUN/CREATININE RATIO 18.9 (5.4-32.0); CALCIUM 8.5 MG/DL (8.5-10.1); CHLORIDE 102 MMOL/L (99-107); CREATININE 1.06 MG/DL (0.60-1.10); GLUCOSE 122 MG/DL (70-104); POTASSIUM 4.3 MMOL/L (3.5-5.1); SODIUM 138 MMOL/L (135-145); TOTAL CARBON DIOXIDE 28.3 MMOL/L (24-32); TOTAL PROTEIN 7.7 G/DL (6.4-8.2); eGFR 83 ML/MIN
[2020-08-30] MEDS ORDERED: normal saline 1000ML IV soln IVB ONE (11:55)
[2020-08-30 13:07] VITALS: BP 139/80
== END 2020-08-30 13:10 | disposition home or self-care (01) ==
LOC: ER 09:16
DX: R42 Dizziness and giddiness (principal); E86.0 Dehydration; R53.1 Weakness; I25.10 Atherosclerotic heart disease of native coronary artery without angina pectoris; E78.00 Pure hypercholesterolemia, unspecified; I10 Essential (primary) hypertension; I25.2 Old myocardial infarction; E11.9 Type 2 diabetes mellitus without complications; M19.90 Unspecified osteoarthritis, unspecified site; F12.90 Cannabis use, unspecified, uncomplicated; Z60.2 Problems related to living alone; Z98.890 Other specified postprocedural states
CPT/HCPCS: 36415; 71045; 80053; 83880; 84484; 85025; 93005; 99285; J7030

== ENCOUNTER 2020-09-03 09:04 | Emergency (ER) | payer BC, MEDICAID ==
[~2020-09-03] VITALS: Ht 185.4 cm; Wt 100.0 kg
[2020-09-03 12:03] LABS: BASOPHILS % (AUTO) 0.4 % (0-1); HEMATOCRIT 41.6 % (42.0-52.0); HEMOGLOBIN 13.6 g/dl (14.0-17.9); LYMPHOCYTES # (AUTO) 0.8 X10'3 (1.1-4.8); LYMPHOCYTES % (AUTO) 21.1 % (21-51); MEAN CORPUSCULAR HEMOGLOBIN 26.8 PG (27.0-31.0); MEAN CORPUSCULAR HGB CONC 32.7 g/dL (33.0-36.5); MEAN CORPUSCULAR VOLUME 81.8 FL (78-98); MEAN PLATELET VOLUME 9.2 FL (7.4-10.4); MONOCYTES # (AUTO) 0.4 X10'3 (0-0.9); MONOCYTES % (AUTO) 11.5 % (2-12); NEUTROPHILS # (AUTO) 2.5 X10'3 (1.8-7.7); PLATELET COUNT 139 X10'3 (140-440); RED BLOOD COUNT 5.09 X10'6 (4.70-6.10); RED CELL DISTRIBUTION WIDTH 14.6 % (11.5-14.5); WHITE BLOOD COUNT 3.7 X10'3 (4.5-11.0)
[2020-09-03 12:05] LABS: PARTIAL THROMBOPLASTIN TIME 35 SECONDS (22-32)
[2020-09-03 12:08] LABS: ALANINE AMINOTRANSFERASE 24 U/L (12-78); ALBUMIN 3.3 G/DL (3.4-5.0); ALBUMIN/GLOBULIN RATIO 0.8 (1.1-1.5); ALKALINE PHOSPHATASE 53 IU/L (46-116); ANION GAP 8 (8-16); ASPARTATE AMINO TRANSFERASE 32 U/L (10-37); BILIRUBIN,TOTAL 0.5 MG/DL (0.1-1.0); BLOOD UREA NITROGEN 24 MG/DL (7-18); BUN/CREATININE RATIO 22.9 (5.4-32.0); CALCIUM 8.7 MG/DL (8.5-10.1); CHLORIDE 105 MMOL/L (99-107); CREATININE 1.05 MG/DL (0.60-1.10); GLUCOSE 70 MG/DL (70-104); POTASSIUM 4.9 MMOL/L (3.5-5.1); SODIUM 140 MMOL/L (135-145); TOTAL CARBON DIOXIDE 27.4 MMOL/L (24-32); TOTAL PROTEIN 7.4 G/DL (6.4-8.2); eGFR 84 ML/MIN
[2020-09-03] MEDS ORDERED: AZIT250T81 PO (12:47)
[2020-09-03 12:59] VITALS: BP 165/87
== END 2020-09-03 13:00 | disposition home or self-care (01) ==
LOC: ER 09:06
DX: J18.1 Lobar pneumonia, unspecified organism (principal); R51.9 Headache, unspecified; E11.9 Type 2 diabetes mellitus without complications; I10 Essential (primary) hypertension; I25.2 Old myocardial infarction; F12.90 Cannabis use, unspecified, uncomplicated; I25.10 Atherosclerotic heart disease of native coronary artery without angina pectoris; E78.00 Pure hypercholesterolemia, unspecified; M19.90 Unspecified osteoarthritis, unspecified site; Z95.1 Presence of aortocoronary bypass graft; Z79.82 Long term (current) use of aspirin
CPT/HCPCS: 36415; 70450; 71045; 80053; 85025; 85610; 85730; 93005; 99285

== ENCOUNTER 2021-07-29 18:43 | Emergency (ER) | payer BC, MEDICAID ==
[~2021-07-29] VITALS: Ht 190.5 cm; Wt 127.7 kg
[2021-07-29 19:39] LABS: BASOPHILS # (AUTO) 0.1 X10'3 (0-0.2); EOSINOPHILS # (AUTO) 0.2 X10'3 (0-0.9); LYMPHOCYTES # (AUTO) 0.8 X10'3 (1.1-4.8); MEAN CORPUSCULAR HEMOGLOBIN 25.3 PG (27.0-31.0); MONOCYTES # (AUTO) 0.6 X10'3 (0-0.9); PLATELET COUNT 192 X10'3 (140-440)
[2021-07-29 19:41] LABS: BASOPHILS % (AUTO) 1.1 % (0-1); D-DIMER 1.47 MG/L FEU (0-0.50); EOSINOPHILS % (AUTO) 4.2 % (0-6); HEMATOCRIT 33.9 % (42.0-52.0); HEMOGLOBIN 10.7 g/dl (14.0-17.9); LYMPHOCYTES % (AUTO) 14.4 % (21-51); MEAN CORPUSCULAR HGB CONC 31.6 g/dL (33.0-36.5); MEAN CORPUSCULAR VOLUME 80.3 FL (78-98); MEAN PLATELET VOLUME 9.4 FL (7.4-10.4); MONOCYTES % (AUTO) 11.2 % (2-12); NEUTROPHILS # (AUTO) 3.7 X10'3 (1.8-7.7); NEUTROPHILS % (AUTO) 69.1 % (42-75); RED BLOOD COUNT 4.22 X10'6 (4.70-6.10); RED CELL DISTRIBUTION WIDTH 16.7 % (11.5-14.5); WHITE BLOOD COUNT 5.3 X10'3 (4.5-11.0)
[2021-07-29 19:45] LABS: ALANINE AMINOTRANSFERASE 25 U/L (12-78); ALBUMIN/GLOBULIN RATIO 0.8 (1.1-1.5); ALKALINE PHOSPHATASE 66 IU/L (46-116); ANION GAP 7 (8-16); ASPARTATE AMINO TRANSFERASE 20 U/L (10-37); BILIRUBIN,TOTAL 0.5 MG/DL (0.1-1.0); BLOOD UREA NITROGEN 16 MG/DL (7-18); BUN/CREATININE RATIO 15.4 (5.4-32.0); CHLORIDE 105 MMOL/L (99-107); CREATININE 1.04 MG/DL (0.60-1.10); GLUCOSE 133 MG/DL (70-104); POTASSIUM 4.4 MMOL/L (3.5-5.1); SODIUM 142 MMOL/L (135-145); TOTAL CARBON DIOXIDE 30.1 MMOL/L (24-32); TOTAL PROTEIN 6.7 G/DL (6.4-8.2); eGFR 85 ML/MIN
[2021-07-29 20:03] LABS: CLARITY,URINE CLEAR (Clear); COLOR,URINE YELLOW (Yellow); GLUCOSE, URINE NEGATIVE (Neg); KETONES,URINE NEGATIVE (Neg); LEUKOCYTE ESTERASE ,URINE NEGATIVE (Neg); NITRITES, URINE NEGATIVE (Neg); OCCULT BLOOD,URINE TRACE-INTACT (Neg); PROTEIN,URINE TRACE mg/dl (Neg)
[2021-07-29 20:13] LABS: UA COLLECTION TYPE NON-SPECIFIED
[2021-07-29] MEDS ORDERED: furosemide 10 MG/1 ML 10ml inj IV ONE ×2 (21:20→22:10)
[2021-07-29] MEDS ORDERED: methylPREDNISolone sod succ 125mg/2ml vial IV ONE (21:20)
[2021-07-29] MEDS ORDERED: ipratropium/albuterol 3ml nebule NEB ONE (21:20)
[2021-07-29 21:23] LABS: BACTERIA,URINE NONE SEEN /HPF (Neg); MUCUS STRANDS NONE SEEN /LPF (Neg); SQUAMOUS EPITHELIAL CELL,UR FEW /LPF (FEW); WBC,URINE 0-4 /HPF (0-4)
[2021-07-29 21:31] LABS: LARGE PLATELETS FEW; PLATELET ESTIMATE NORMAL
[2021-07-29 21:32] LABS: ANISOCYTOSIS 1+; ELLIPTOCYTES FEW; HYPOCHROMASIA 1+; POLYCHROMASIA 1+; SCHISTOCYTES FEW
[2021-07-29] MEDS ORDERED: LEVO500T90 PO (21:49)
[2021-07-29] MEDS ORDERED: POTASSIUM BICARB 20meq eff tab 20 MEQ TABLET.EFF PO ONE (22:10)
[2021-07-29 22:24] VITALS: BP 135/75
== END 2021-07-29 22:29 | disposition home or self-care (01) ==
LOC: ER 18:43
DX: J44.9 Chronic obstructive pulmonary disease, unspecified (principal); R60.0 Localized edema; I25.10 Atherosclerotic heart disease of native coronary artery without angina pectoris; E78.00 Pure hypercholesterolemia, unspecified; I25.2 Old myocardial infarction; I10 Essential (primary) hypertension; E11.9 Type 2 diabetes mellitus without complications; M19.90 Unspecified osteoarthritis, unspecified site; F12.90 Cannabis use, unspecified, uncomplicated; F17.200 Nicotine dependence, unspecified, uncomplicated; Z95.5 Presence of coronary angioplasty implant and graft; Z79.2 Long term (current) use of antibiotics
CPT/HCPCS: 36415; 71045; 80053; 81001; 83880; 84484; 85008; 85025; 85379; 93005; 94640; 96374; 96375; 99285; J1940; J2930